=== PATIENT | female | born 1935 | race Caucasian/White ===

== ENCOUNTER → 2016-06-25 | Outpatient (CLI) | payer MEDICARE, OTHER ==
[~2016-06-25] MED LIST: ALBU17IN INH; BENA25TA4 PO; LOPR50TA PO; NO MEDS; NORCOTAB PO; OMEP40CA2 PO; TYLE325T5 PO
[2016-06-25 12:38] LABS: BLOOD UREA NITROGEN 16 MG/DL (7-18); CREATININE FOR GFR 0.84 MG/DL (0.55-1.02); GLOMERULAR FILTRATION RATE > 60.0 (>32)
== END ==
LOC: M LAB 11:37
PROVIDERS: ATTEND Surgery
DX: C18.9 Malignant neoplasm of colon, unspecified (principal)

== ENCOUNTER → 2016-07-09 | Outpatient (CLI) | payer MEDICARE, OTHER ==
[~2016-07-09] MED LIST changes: +GASTROGRAFIN SOLUTION 30ML (Q9963) As Ordered ONE; +ISOVUE-370 76% 100ML VIAL (Q9967) As Ordered ONE
--- NOTE | 2016-07-09 14:45 | REP ---
CT of the chest without IV contrast: Comparisons 02/11/2016. The patient has multiple lung nodules, compatible with metastases, as follows: Page 33, right lung, 11 mm, 5 mm previously. Page 35, right lung, 10 mm, 5 mm previously. Page 40, right lung, 11 mm, 6 mm previously. Page 47, right lung, 7 mm, 7 mm previously. Page 50, too small pleural based nodules, unchanged. Page 54, left lung, 9 mm, 7 mm previously. Page 59, right lung, tiny likely 2 mm, unchanged. Page 62, right lung, 7 mm, not present previously. Page 67, pleural-based nodule, right lung, unchanged. There are no infiltrates or effusions. There are calcified granulomas in the right hilar nodes. This is unchanged. There are calcifications in tracheal and bronchial cartilages. This is unchanged. There are no lytic, blastic or destructive skeletal changes. There is an hemangioma in the T7 vertebral body, unchanged from 07/16/2012. Additionally there is a small lucency posterior laterally on the right in the T 12 vertebral body, unchanged from 07/16/2012, also likely an hemangioma. No other hypermetabolic skeletal lesions were identified on the CT scan dated 03/05/2016. Impression: There are multiple lung nodules as described. There is no mediastinal, hilar or axillary lymph node enlargement. There are calcified granulomas in the right hilar lymph nodes. There are no infiltrates or effusions. There is no evidence of skeletal metastatic disease. There are findings compatible with benign hemangioma in the T7 vertebral body and the T12 vertebral body. Signed by Franklin Anderson MD 07/09/2016 02:36 P
--- NOTE | 2016-07-09 15:22 | REP ---
CT abdomen pelvis: The study is performed in tandem with the CT of the chest this same day utilizing the same IV contrast as for the chest CT. Multiphasic imaging of the abdomen performed. The liver is initially scanned without IV contrast. This is followed by arterial phase scanning from the diaphragms to the pubic symphysis. This is followed by delayed equilibrium phase scanning of the liver. Comparison is 08/30/2014. There is a focal hemangioma in the right lobe of the liver, unchanged from the prior study. There is no evidence of hepatic metastatic disease, as previously. The gallbladder, pancreas and spleen are unchanged. Splenic granulomas are again noted. There is a 1.4 cm nodule in the left adrenal at the confluence of the medial lateral leaves. This is unchanged from a prior CT dated 05/25/2012. There was no adrenal uptake on the PET scan of 03/05/2016. The right adrenal is unremarkable. The kidneys are unremarkable. The abdominal aorta is unremarkable. There is no retroperitoneal adenopathy. No mesenteric adenopathy. Pelvis: The surgical anastomotic suture line is again noted in the sigmoid colon. There is no ascites. There is no pelvic adenopathy. There is no evidence of tumor recurrence along the anastomosis. On the 02/11/2016 study there was a mass in the anterior pelvic wall at the level of the pubic symphysis. This mass is no longer present, however, there is stranding in the subcutaneous fat in this location. This stranding could be postsurgical change, postradiation change, or combination. There are no lytic, blastic or destructive skeletal changes in the lumbar spine or pelvis. There is a small bone island in the pubic symphysis on the left, unchanged from 05/25/2012. 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 Impression: No evidence of metastatic disease, adenopathy, or ascites in the abdomen or pelvis. An hepatic hemangioma is again noted. A benign left adrenal nodule is again noted. The mass anterior to the pubic symphysis on the anterior pelvic wall on the comparison study is no longer present. There is linear stranding in the anterior abdominal wall at this location on the current study. This could be postsurgical change , postradiation change or combination. Signed by Franklin Anderson MD 07/09/2016 03:14 P
== END ==
LOC: M RAD 11:51
PROVIDERS: ATTEND Surgery
DX: C18.9 Malignant neoplasm of colon, unspecified (principal)
CPT/HCPCS: 71260; 74178; Q9963; Q9967

== ENCOUNTER → 2016-07-30 | Outpatient (CLI) | payer MEDICARE, OTHER ==
[~2016-07-30] MED LIST changes: -GASTROGRAFIN SOLUTION 30ML (Q9963) As Ordered ONE; -ISOVUE-370 76% 100ML VIAL (Q9967) As Ordered ONE
--- NOTE | 2016-07-31 09:53 | REP ---
Whole body PET CT scan for restaging lung nodule, history of colon carcinoma. Comparison is the CT chest abdomen pelvis dated 07/09/2016. The comparison chest CT demonstrate multiple lung nodules, some of which have increased in size. Whole-body scanning is performed from skull base to the upper thighs. Comparison PET scan views dated 03/05/2016. Neck and supraclavicular areas: There are no hypermetabolic foci. This is unchanged. Chest: There are are three tiny foci centrally in the right lung in the right suprahilar area, not present previously but roughly corresponding to the lung nodules on the comparison chest CT. The uptake in these nodules varies from the standard uptake value of these nodules varies from 0.52 to 2.5 . These up standard uptake values are in the non hypermetabolic drains, however, be artifact below because of patient's small lesion size. This uptake in a in the nodules is new. It was not present on the comparison study. There is a focal zone of uptake in the body of the right scapula, not present previously, with a standard uptake value of 1.7, also non hypermetabolic. There is no vertebral body uptake. Abdomen, pelvis and upper thighs: There are no hypermetabolic foci. There is no uptake in the patient's known left adrenal nodule. Impression: The the patient has known multiple lung nodules. On the study today there is now uptake in a few of these lung nodules on the right. This uptake was not present previously, therefore, even though the uptake is non hypermetabolic the uptake could be artifactually low because of small nodule size. There is a small new focal zone of uptake in the right scapula, non hypermetabolic, also not present previously. There are no other uptake foci. The study is performed with 8.7 mCi of F 18 FDG. Signed by Franklin Anderson MD 07/30/2016 03:37 P
== END ==
LOC: M RAD 11:24
PROVIDERS: ATTEND Surgery
DX: R91.8 Other nonspecific abnormal finding of lung field (principal); Z85.038 Personal history of other malignant neoplasm of large intestine
CPT/HCPCS: 78815; A9552

== ENCOUNTER → 2016-10-30 | Outpatient (REF) | payer MEDICARE, OTHER | LOC: M LAB REF 16:37 | PROVIDERS: ATTEND Internal Medicine Medical Oncology | DX: C18.9 Malignant neoplasm of colon, unspecified (principal) ==

== ENCOUNTER → 2016-11-05 | Outpatient (CLI) | payer MEDICARE, OTHER ==
[~2016-11-05] MED LIST changes: +GASTROGRAFIN SOLUTION 30ML (Q9963) As Ordered ONE; +ISOVUE-370 76% 100ML VIAL (Q9967) As Ordered ONE; +diphenhydrAMINE 50 MG CAP As Ordered ONE
--- NOTE | 2016-11-05 13:43 | REP ---
CT chest with IV contrast: History: Re-evaluate pulmonary nodules. History of colon carcinoma. Comparison chest CT study July 09, 2016. CT contrast dose: 100 ml of intravenous Isovue 370. CT findings: Multiple noncalcified pulmonary nodules are again seen compatible with hematogenous metastasis. There is one of these which is new. This is a very small nodule in the medial aspect of the left upper lobe 4 mm in diameter seen on image 24 of 115 of series 304 of today's study. Several of the other previously noted nodules are a little larger today. A previously noted 10 mm nodule in the posterior segment of the right upper lobe now measures 12 mm in greatest diameter. Another kinza bronchovascular central nodule is increased from 11 to 12 mm in the right upper lobe. A pleural-based nodule in the right lower lobe has increased from 8 to 11 mm in greatest diameter. A right medial middle lobe nodule is slightly larger today measuring 7 mm in greatest diameter. The previously noted 9 mm nodule in the left lower lobe is unchanged. There is a right lower lobe nodule on page 59 of 115 of today's study which has increased to 10 mm from 7 mm. No hilar or mediastinal mass or adenopathy is observed. An aberrant right subclavian artery is again noted. No pleural or pericardial effusion is seen. No adrenal lesion is observed. No hepatic mass lesion is visible. Impression: Findings consistent with gradually progressive pulmonary metastatic disease. Signed by Lonnie Kang MD 11/05/2016 02:07 P
--- NOTE | 2016-11-05 14:01 | REP ---
CT ABDOMEN AND PELVIS WITHOUT AND WITH IV CONTRAST: With oral contrast. HISTORY: History of colon carcinoma, re-evaluate pulmonary nodules. Comparison CT abdomen and pelvis is from July 09, 2016. The patient is status post colon resection, abdominal mass resection, radiation therapy and chemotherapy. CT CONTRAST DOSE: 100 mL of Isovue [address] FINDINGS: No liver mass lesion is appreciated. There is a tiny granulomatous calcification at the capsule of the right lobe. Previously noted 1 cm right lobe hemangioma of the liver is again seen although less conspicuous today. There are granulomatous calcifications in the spleen. There is a small gallstone in the gallbladder. A small left adrenal nodule is again seen 1.4 cm in greatest diameter. This is unchanged. No periaortic mass or adenopathy is observed. A retroaortic left renal vein is again noted. No pelvic or inguinal adenopathy is seen. The suprapubic anterior abdominal wall mass noted on February 11, 2016 has regressed. There is some mild soft tissue thickening here much improved from February 14, 2016. This appears slightly thicker however when compared to the most recent prior study of July 09. On the right and just anterior to symphysis pubis, this measures 3.0 x 2.4 x 2.7 cm today. On the left it is also slightly more prominent than on the 07/09/2016 study measuring 1.8 x 2.1 x 1.9 cm. No other abdominal wall deposit is seen. There is some fibrotic density extending up from the suprapubic region along the anterior abdominal wall. This was present previously. No bony destructive lesion is seen. IMPRESSION: The suprapubic anterior abdominal wall mass appears a little more prominent today than on the most recent prior study of July 10, 2019. This suggests recurrence or gradual progression. Signed by Lonnie Kang MD 11/05/2016 02:07 P
== END ==
LOC: M RAD 10:55
PROVIDERS: ATTEND Internal Medicine Medical Oncology
DX: R91.8 Other nonspecific abnormal finding of lung field (principal); Z85.038 Personal history of other malignant neoplasm of large intestine
CPT/HCPCS: 71260; 74178; Q9963; Q9967

== ENCOUNTER → 2016-12-15 | Outpatient (REF) | payer MEDICARE, OTHER ==
[~2016-12-15] MED LIST changes: -GASTROGRAFIN SOLUTION 30ML (Q9963) As Ordered ONE; -ISOVUE-370 76% 100ML VIAL (Q9967) As Ordered ONE; -diphenhydrAMINE 50 MG CAP As Ordered ONE
== END ==
LOC: M LAB REF 13:35
PROVIDERS: ATTEND Internal Medicine Medical Oncology
DX: C18.9 Malignant neoplasm of colon, unspecified (principal)

== ENCOUNTER → 2017-03-17 | Outpatient (REF) | payer MEDICARE, OTHER ==
[~2017-03-17] MED LIST changes: +ALB2.5NEB INH; +Acetaminophen Tab PO; +IPRASOL4 NEB; +LOVE1INJ SC; +METO1TAB87 PO; +NICO21PAT TD; +ONDA4VLL IV; +PERCOCET PO; +SENN1TAB2 PO
== END ==
LOC: M LAB REF 17:19
PROVIDERS: ATTEND Internal Medicine Medical Oncology
DX: C18.9 Malignant neoplasm of colon, unspecified (principal)

== ENCOUNTER 2017-03-18 12:28 | Inpatient (IN) | payer MEDICARE, OTHER ==
[~2017-03-18] VITALS: Ht 165.1 cm; Wt 67.8 kg
[~2017-03-18 12:28] MED LIST changes: -ALB2.5NEB INH; -Acetaminophen Tab PO; -IPRASOL4 NEB; -LOVE1INJ SC; -METO1TAB87 PO; -NICO21PAT TD; -ONDA4VLL IV; -PERCOCET PO; -SENN1TAB2 PO
[2017-03-18] MEDS ORDERED: ONDANSETRON 4MG/2ML VIAL (J2405) IV ONE (13:00)
[2017-03-18 13:34] LABS: MEAN CORPUSCULAR HGB CONC 32.6 g/dl (32.0-36.5); PLATELET COUNT, AUTOMATED 276 10^3/uL (150-450); RED CELL DISTRIBUTION WIDTH 13.8 % (11.5-14.5); WHITE BLOOD COUNT 8.8 10^3/uL (4.0-10.0)
[2017-03-18 13:51] LABS: ANION GAP 6 MEQ/L (8-16); BLOOD UREA NITROGEN 11 MG/DL (7-18); CALCIUM LEVEL 8.9 MG/DL (8.8-10.2); CARBON DIOXIDE LEVEL 32 MEQ/L (21-32); CHLORIDE LEVEL 99 MEQ/L (98-107); CREATININE FOR GFR 0.77 MG/DL (0.55-1.02); GLOMERULAR FILTRATION RATE > 60.0 (>32); GLUCOSE, FASTING 125 MG/DL (83-110); POTASSIUM SERUM 4.2 MEQ/L (3.5-5.1); SODIUM LEVEL 137 MEQ/L (136-145)
--- NOTE | 2017-03-18 13:57 | REP ---
Clinical: Trauma . Findings: Age-related atrophy and microvascular ischemic changes are appreciated. The ventricles and sulci are symmetric. Alston-white differentiation is maintained. There is no evidence for acute intracranial hemorrhage, mass/mass effect, pathology or infarction. No extra-axial fluid collection. Calvarium is intact. Paranasal sinuses and mastoid air cells are clear. Impression: Age related atrophy and microvascular ischemic changes. No acute intracranial hemorrhage, infarction, or mass/mass effect. Signed by Torsten Bruce MD 03/18/2017 01:48 P
--- NOTE | 2017-03-18 13:59 | REP ---
Clinical: Trauma. Technique: Axial noncontrast images from the skull base to the thoracic inlet with coronal and sagittal re-formations. Findings: Alignment and lordosis maintained. No acute fracture / compression injury or subluxation. Mild multilevel degenerative changes include anterior spurring and minimal disc space narrowing - most pronounced at the C7-T1 level. Spinal canal is patent. Posterior elements and spinous processes are intact. Paravertebral soft tissues are normal. Impression: Mild multilevel degenerative changes. No acute fracture / compression injury or subluxation. Signed by Torsten Bruce MD 03/18/2017 01:50 P
[2017-03-18] MEDS: MORPHINE 2 MG/ML 1ML SYRINGE IV PRN ×2 (14:00→15:05)
[2017-03-18 14:16] LABS: INR 0.96
--- NOTE | 2017-03-18 14:32 | REP ---
Clinical: Trauma. Technique: Frontal view of the pelvis with neutral and frog lateral views of the left hip. Findings: Acute left femoral neck fracture identified with mild angulation. Impression: Acute left femoral neck fracture. Signed by Torsten Bruce MD 03/18/2017 02:23 P
--- NOTE | 2017-03-18 14:32 | REP ---
Clinical: Trauma. Comparison: 11/25/2012. Findings: Mediastinum and cardiac silhouette are normal. Lung lopez are clear. No focal consolidation, effusion, or pneumothorax. Skeletal structures appear intact. Impression: No acute cardiopulmonary process or focal consolidation. Signed by Torsten Bruce MD 03/18/2017 02:23 P
[2017-03-18] MEDS ORDERED: HYDROmorphone HCL 1 MG/ML SYRINGE (J1170) IV PRN ×2 (15:00)
[2017-03-18] MEDS ORDERED: ONDANSETRON 4MG/2ML VIAL (J2405) IV PRN ×2 (15:00→22:00)
--- NOTE | 2017-03-18 15:00 | IPNPDOC ---
Text Note Date of Service The patient was seen on 03/18/17. NOTE Preliminary Medicine note Please refer to H and P for more information. 81 F with metastatic colon cancer with new lung nodule found, s/p mechanical fall with left femoral neck fracture. No h/o CVA, CAD, VINCE, COPD. denied chest pain, sob,n/v, LOC. METS >4, able to climb a flight of stair, last meal 7:20 am. not on antiplatelet or anticoag. Patient optimized for orthopedic surgery. Intermediate risk fo intermediate risk surgery. Please refer to full note VS,Fishbone, I+O VS, Fishbone, I+O Laboratory Tests 03/18/17 13:23 Red Blood Count 5.72 H, Mean Corpuscular Volume 89.0, Mean Corpuscular Hemoglobin 29.0, Mean Corpuscular Hemoglobin Concent 32.6, Red Cell Distribution Width 13.8, Calcium Level 8.9, Total Creatine Kinase 65 Vital Signs Date Time Temp Pulse Resp B/P (MAP) Pulse Ox O2 Delivery O2 Flow Rate FiO2 03/18/17 14:51 20 93 Nasal Cannula 2.0 03/18/17 14:15 86 168/70 (102) 03/18/17 12:52 97.9 EMILIE BLACKWOOD MD Mar 18, 2017 15:00
[2017-03-18] MEDS ORDERED: METO1TAB87 PO (15:13)
[2017-03-18] MEDS ORDERED: NICOTINE 21MG/24HR 1 EA TRANSDERMAL TD PRN (15:15)
[2017-03-18] MEDS ORDERED: IPRATROPIUM 0.5MG/ALBUTEROL 2.5MG INH SOL UD 3ML (DUONEB)(J7620) NEB PRN (15:30)
[2017-03-18] MEDS: LR 1,000 ML IV SCH (15:36)
--- NOTE | 2017-03-18 15:42 | HPE ---
DATE OF ADMISSION: 03/18/2017 PRIMARY CARE PROVIDER: Dr. Srinivasan Almazan ORTHOPEDIC SURGEON: Dr. John Augustine CHIEF COMPLAINT: Fall with left hip fracture. HISTORY OF PRESENT ILLNESS: This is an 81-year-old female patient with underlying medical history of hypertension, colon cancer diagnosed 4 years ago with metastasis to the rectum. Had a colectomy with ileostomy and reversal of ileostomy. Also had radiation to the rectum. Tried five sessions of chemotherapy. Does not tolerate. Subsequently discontinued. In October this year patient also found to have spots in her lung. No further workup has been done since then. Patient baseline is actually pretty active, able to clean the house, walk up a flight of stairs. Earlier this morning patient was carrying groceries into her house, walking up one step. Subsequently lost her balance. Fell backward, hitting her back, neck, and head. Subsequently had severe 10/10 left hip with left hip being deformed. Subsequently brought to the emergency room. Found to have a left femoral neck fracture, displaced. Patient has a history of smoking. Denies history of coronary artery disease, stent placement, cerebrovascular accident (CVA). Denies any chest pain, loss of consciousness. Initially had some head pain but has subsequently resolved. No loss of consciousness. As per patient, she lost her balance. Baseline ambulating without any assistance. Denies any nausea, vomiting, shortness of breath, recent illness, fevers, chills. Denies any chest pain. Nicotine patch has been offered to the patient. Dr. John Augustine was consulted in the emergency room. Patient recently also last year had an abdominal surgery with mass removal for recurrent cancer with debulking procedure in 2015, and patient tolerated the procedure very well. ALLERGIES: PENICILLIN, PENICILLIN CROSS-REACTORS, and IV CONTRAST. PAST MEDICAL HISTORY: Colon cancer with metastasis and lung nodule that was found in October. Last chemotherapy was about 3 or 4 years ago. PAST SURGICAL HISTORY: 1. Colonoscopy. 2. Total abdominal hysterectomy. 3. Sigmoid colon resection for colon cancer. 4. Ileostomy with ileostomy creation in 2012. 5. Colonic reanastomosis in 2012. 6. Bilateral cataract extraction. 7. Abdominal mass removal, [facility], 2016. SOCIAL HISTORY: Lives at home with . Current smoker. Smoked a pack a day for 60+ years. No alcohol use. Last meal was 7:30 this morning with cereal. REVIEW OF SYSTEMS: Reported 10/10 left hip pain. Reported mild occipital head pain that has resolved since arriving at the emergency department (ED). All other review of systems is negative. FAMILY HISTORY: Noncontributory. HOME MEDICATIONS: Metoprolol 25 mg by mouth twice a day. PHYSICAL EXAMINATION: VITAL SIGNS: Temperature 97.9, pulse 86, respirations 20, blood pressure 168/70, pulse oximetry 95% on 2 liters nasal cannula. GENERAL: Patient alert and oriented times three in no acute distress. HEENT: Mild occipital soft tissue swelling. No tenderness to palpation. NECK: Supple. Good range of motion. No obvious trauma noticed. PULMONARY: Bilaterally clear to auscultation. CARDIAC: Regular S1, S2. No murmurs detected. ABDOMEN: Soft and nontender. Positive bowel sounds. EXTREMITIES: Left hip externally rotated and shortened. Left lower extremity: Dorsalis pedis (DP)/posterior tibialis (PT) pulses intact. Right lower extremity. DP/PT pulses intact. Able to move right lower extremity without any limitations. EKG: Sinus rhythm at 77. No acute ST-segment changes. LABORATORY DATA: WBC 8.8, hemoglobin and hematocrit 16.6/50.9, platelets 276. Sodium 137, potassium 4.2, chloride 99, bicarbonate 32, BUN 11, creatinine 0.77. Cardiac enzymes negative times one. INR 0.96. Cervical spine CT shows mild multilevel degenerative changes. No acute fractures. CT of the head shows no acute fractures, ischemic changes, or intracranial hemorrhage. Chest x-ray within normal limits. X-ray of the hip and pelvis shows acute left femoral neck fracture. ASSESSMENT AND PLAN: This is an 81-year-old female patient with underlying medical history of metastatic colon cancer with also newly discovered lung nodule and hypertension, presented status post mechanical fall with acute left femoral neck fracture, displaced. 1. Mechanical fall with acute femoral neck fracture. Given underlying active cancer, will need to follow pathology for possible pathological fracture. Orthopedics, Dr. John Augustine, has been consulted. Have attempted to call and left a message with Dr. Lisa Pendleton. Patient baseline metabolic equivalents (METS) greater than 4. Able to climb one flight of stairs, do common test man, do her laundry. Able to walk to the store and do shopping. Denies any chest pain, pressure, or discomfort. No EKG changes. Continue beta sylvester recommended. Patient is intermittent low risk for intermittent-risk procedure. Deep vein thrombosis (DVT) prophylaxis as per orthopedics. Will recommend starting perhaps Lovenox given underlying cancer tomorrow. Pain medication as ordered. Bowel regimen as ordered. Further management, activity status, perioperative management as per orthopedics. Risk and benefit counseling has been provided. 2. Hypertension. Continue metoprolol. 3. Colon cancer with lung nodules. Outpatient followup recommended. Will follow pathology during orthopedic surgery to see if it is a bone metastasis that has induced patient to have fractures. Outpatient followup with Dr. Lisa Pendleton. Patient does not want any chemotherapy. Did not tolerate it previously. 4. Smoking. Counseling provided. Nicotine patch has been offered. Patient refused. Will place nicotine as needed for the patient in case patient needs it. Counseling has been provided. 5. DVT prophylaxis. Defer to orthopedics. Tentative has been ordered Lovenox subcutaneous to start tomorrow given patient with underlying metastasis. 6. Diet. Patient currently nothing by mouth. IV fluids have been given. Awaiting surgery. Orthopedics, Dr. John Augustine, has been consulted.
[2017-03-18 17:30] VITALS: BP 174/81
[2017-03-18] MEDS: PERCOCET 5MG/325MG TAB PO PRN ×2 (17:56→23:25)
[2017-03-18] MEDS ORDERED: ENOXAPARIN 40 MG/0.4 ML SYRINGE (J1650) SC SCH (18:00)
[2017-03-18] MEDS ORDERED: ceFAZolin 1GM INJ (J0690) As Ordered ONE (19:17)
[2017-03-18] MEDS ORDERED: EPINEPHrine INJ 1 MG/ML 1ML AMP As Ordered ONE (19:18)
[2017-03-18] MEDS ORDERED: CLINDAMYCIN INJ 900MG/6ML VIAL As Ordered ONE (19:32)
[2017-03-18] MEDS ORDERED: ceFAZolin 2 GM/D5W 50 ML IV BAG (J0690) As Ordered ONE (19:53)
[2017-03-18] MEDS ORDERED: KETAMINE HCL 200 MG/20 ML VIAL As Ordered ONE (19:59)
[2017-03-18] MEDS ORDERED: fentaNYL 100 MCG/2 ML INJECTION (J3010) As Ordered ONE (19:59)
[2017-03-18] MEDS ORDERED: MIDAZOLAM INJ 2 MG/2 ML VIAL (J2250) As Ordered ONE (19:59)
[2017-03-18] MEDS ORDERED: PROPOFOL 200 MG/20 ML VIAL As Ordered ONE (19:59)
[2017-03-18] MEDS ORDERED: LIDOCAINE 2% INJ 100 MG/5 ML SDV (FOR ANES.) As Ordered ONE (19:59)
[2017-03-18 21:00] VITALS: BP 162/92
[2017-03-18 22:00] VITALS: BP 142/73
[2017-03-18] MEDS ORDERED: LR 1,000 ML IV SCH (22:00)
[2017-03-18] MEDS ORDERED: fentaNYL 100 MCG/2 ML INJECTION (J3010) IV PRN (22:00)
[2017-03-18] MEDS ORDERED: METOCLOPRAMIDE INJ 10MG/2ML VIAL (J2765) IV PRN (22:00)
[2017-03-18] MEDS ORDERED: PERCOCET 5MG/325MG TAB PO PRN (22:00)
[2017-03-18 23:00] VITALS: BP 131/59
[2017-03-18] MEDS: METOPROLOL TART 25 MG TABLET PO SCH (23:25)
[2017-03-18] MEDS: SENOKOT S TAB PO SCH (23:26)
[2017-03-19] VITALS: BP 128/60
[2017-03-19] MEDS: LR 1,000 ML IV SCH ×3 (01:30→21:04)
[2017-03-19] MEDS: PERCOCET 5MG/325MG TAB PO PRN ×3 (04:21→17:55)
[2017-03-19 06:00] VITALS: BP 129/58
[2017-03-19 07:28] LABS: MEAN CORPUSCULAR HEMOGLOBIN 29.1 pg (27.0-33.0); MEAN CORPUSCULAR HGB CONC 31.5 g/dl (32.0-36.5); MEAN CORPUSCULAR VOLUME 92.2 fl (80.0-96.0); PLATELET COUNT, AUTOMATED 200 10^3/uL (150-450); RED CELL DISTRIBUTION WIDTH 13.6 % (11.5-14.5); WHITE BLOOD COUNT 10.3 10^3/uL (4.0-10.0)
[2017-03-19 07:34] LABS: ANION GAP 3 MEQ/L (8-16); BLOOD UREA NITROGEN 9 MG/DL (7-18); CALCIUM LEVEL 8.2 MG/DL (8.8-10.2); CARBON DIOXIDE LEVEL 34 MEQ/L (21-32); CHLORIDE LEVEL 100 MEQ/L (98-107); CREATININE FOR GFR 0.71 MG/DL (0.55-1.02); GLOMERULAR FILTRATION RATE > 60.0 (>32); GLUCOSE, FASTING 96 MG/DL (83-110); MAGNESIUM LEVEL 1.7 MG/DL (1.8-2.4); POTASSIUM SERUM 4.5 MEQ/L (3.5-5.1); SODIUM LEVEL 137 MEQ/L (136-145)
[2017-03-19 07:43] LABS: INR 1.11
--- NOTE | 2017-03-19 08:09 | CR ---
DATE OF CONSULTATION: 03/18/2017 REASON FOR CONSULTATION: Left displaced femoral neck fracture. HISTORY OF THE PRESENT ILLNESS: An 81-year-old female carrying groceries into her home, went up one step and fell backwards, hit her head on the back of a wooden fence, she fell and injured her left hip. She did not have any antecedent pain in the left hip before this and was normally quite active, doing her housework and ambulating and getting around without any significant musculoskeletal pain. But there is a known history of metastatic colon cancer, primarily involving her lungs and the pelvic area, but there has been no known musculoskeletal metastases. She complains only presently of isolated pain in the left hip and groin with significant muscle spasms and does have some soreness in the back of her head, but no complaints of numbness or tingling in the upper or lower extremities associated with this. Seen and evaluated by the emergency room physicians, and I was called to see her and the hospitalist has admitted her and evaluated her and called me and said that she is otherwise healthy and it is okay to proceed with surgical fixation if needed today. Her past medical history is otherwise significant for some high blood pressure for which she takes metoprolol. Her past surgical history is colonoscopy, total abdominal hysterectomy, sigmoid colon resection for colon cancer with ileostomy in 2012 and colonic re-anastomosis later that year, then she had bilateral cataract surgeries, then she had further abdominal surgery at [facility] in 2016 for some type of debulking procedure for recurrent local mass in the lower abdominal area. Otherwise, her past medical history is significant for colon cancer with metastases. She sees Dr. Lisa Pendleton here and actually just saw her yesterday in the office. Plan for repeat chest, abdominal and pelvic CT scan in another month or so. She had a PET scan earlier this year, showed some uptake and some small nodules throughout mainly the right lung area and a smaller area in the right scapula, but there were non-hypermetabolic, apparently. Dr. Srinivasan Almazan careandrews for her medically, had a well patient check in October of this year. Otherwise she was doing fairly well. SOCIAL HISTORY: She does smoke cigarettes. She does not drink alcohol excessively. She is here with her brother and her [id number] up here on the hospital floor at [address]. ALLERGIES: To PENICILLIN. REVIEW OF SYSTEMS: Basically per the history of the present illness and the note from Dr. Mendoza. MEDICATIONS AT HOME: - metoprolol 25 mg twice a day When I examine her, she is an alert and pleasant female but complaining of isolated soreness in the left hip with frequent muscle spasms as I try to examine her. Her temperature is 97.9 with a pulse of 86, blood pressure 168/70, oxygen saturation is 95%. HEENT exam was benign. There is some soreness in the back of her head but no bleeding. Her neck was nontender to palpation. Her right scapula to palpation did not show any tenderness. She could elevate her arms up overhead without obvious soreness or rotator cuff deficiency, or obvious deformity, swelling or crepitance of her shoulders, humeri, elbows, forearms, wrists or hands. Her lungs are clear to auscultation. Her heart was tachycardic, but I did not detect any significant murmurs. Extremity examination: Otherwise in the lower extremity her left hip was held externally rotated and it was very tender in her left groin area. Distally I could not palpate pulses, but I got the Doppler out and easily obtained dorsalis pedis and posterior tibial pulses. She could move her toes well. Normal sensation to light touch dorsally and plantarly. Her laboratory studies done today showed a white count of 8.8, hematocrit of 50.9 and platelets of 276. Her sodium was 137, potassium 4.2, chloride 99, bicarbonate 32, BUN 11, creatinine 0.77, glucose 125. Her prothrombin time was 12.9 and INR of 0.96. Radiographs of the pelvis and right hip today show an obvious displaced left femoral neck fracture. There is no obvious otherwise lytic or blastic lesions, or obvious metastases seen or otherwise evidence of any other fracture that I can see on these x-rays. My impression overall is she is an 81-year-old female with metastatic colon cancer but no known skeletal metastases with a mechanical fall with acute onset of pain in the left hip and groin without any pain prior to this, did not have any pain with walking, so it is a low likelihood, and given the appearance on x-ray, that this is a metastatic lesion, but clearly this could be evaluated when we plan to do surgical fixation of her hip and send it for formal pathologic diagnosis. But I would recommend a left hip hemiarthroplasty given the displaced nature of this fracture and our hope is that we can get her out of bed quickly and recovering and ambulating as quickly as possible. But doing this carries the risk of having surgery, which I discussed with she and her brother and [id number]. There is always a risk of phlebitis, embolism, heart attack, amongst others, failure of the prosthesis or need for other surgery in the future can always happen with these types of injuries and surgeries and she understands that. She signed the consent. We plan to proceed as soon as the operating room is available. She has been nothing by mouth for most of the day already. Copy To: [id number]
[2017-03-19] MEDS: SENOKOT S TAB PO SCH ×2 (08:19→21:06)
[2017-03-19] MEDS: METOPROLOL TART 25 MG TABLET PO SCH ×2 (08:19→21:06)
--- NOTE | 2017-03-19 08:37 | REP ---
Clinical: Cough. Comparison: 03/18/2017. Findings: Mediastinum and cardiac silhouette are within normal limits and stable. Lung lopez demonstrate chronic interstitial changes and superimposed interstitial edema cannot be excluded no effusion. No pneumothorax. Skeletal structures are intact. Impression: Chronic stable changes. Cannot exclude interstitial edema. Signed by Torsten Bruce MD 03/19/2017 08:29 A
[2017-03-19 10:00] VITALS: BP 107/42
--- NOTE | 2017-03-19 11:29 | REP ---
Clinical: Status post arthroplasty. Technique: AP and cross-table lateral views. Findings: The patient is status post left hip replacement with normal positioning and appearance to the femoral and acetabular components. Overlying postsurgical changes appreciated. Impression: Satisfactory left hip replacement radiographs. Signed by Torsten Bruce MD 03/19/2017 11:21 A
[2017-03-19 14:00] VITALS: BP 130/53
[2017-03-19] MEDS: ACETAMINOPHEN TAB 650MG DOSE (2X325MG) PO PRN (21:05)
[2017-03-19 22:00] VITALS: BP 110/61
[2017-03-20] MEDS: ACETAMINOPHEN TAB 650MG DOSE (2X325MG) PO PRN (04:17)
--- NOTE | 2017-03-20 05:59 | ECGEPIP ---
Stationary ECG Study [facility] - ED Test Date: 2017-03-18 Pat Name: IRVIN BRAMBILA Department: Room: - Gender: F Analytical Lead: CHAI : 1935 Requested By: Duran Fitzgerald Order Number: [id number] Reading MD: Duran Nicholas Measurements Intervals [place] Rate: 77 P: 80 SD: 150 QRS: 66 QRSD: 89 T: 64 QT: 347 QTc: 395 Interpretive Statements SINUS RHYTHM NSTTW ABNORMALITIES RATE CHANGE COMPARED TO 06/10/12 Electronically Signed On 03-20-2017 5:59:03 EST by Duran Nicholas
[2017-03-20 06:00] VITALS: BP 103/46
[2017-03-20] MEDS ORDERED: ALBUTEROL SULFATE 2.5 MG/0.5 ML INH NEB SOLN INH PRN (06:30)
[2017-03-20 06:31] LABS: MEAN CORPUSCULAR HEMOGLOBIN 28.7 pg (27.0-33.0); MEAN CORPUSCULAR HGB CONC 31.5 g/dl (32.0-36.5); MEAN CORPUSCULAR VOLUME 91.1 fl (80.0-96.0); PLATELET COUNT, AUTOMATED 160 10^3/uL (150-450); RED CELL DISTRIBUTION WIDTH 13.6 % (11.5-14.5); WHITE BLOOD COUNT 11.5 10^3/uL (4.0-10.0)
[2017-03-20 06:40] LABS: INR 1.46
[2017-03-20 06:49] LABS: ANION GAP 8 MEQ/L (8-16); BLOOD UREA NITROGEN 19 MG/DL (7-18); CALCIUM LEVEL 8.4 MG/DL (8.8-10.2); CARBON DIOXIDE LEVEL 28 MEQ/L (21-32); CHLORIDE LEVEL 100 MEQ/L (98-107); CREATININE FOR GFR 0.65 MG/DL (0.55-1.02); GLOMERULAR FILTRATION RATE > 60.0 (>32); GLUCOSE, FASTING 69 MG/DL (83-110); MAGNESIUM LEVEL 1.7 MG/DL (1.8-2.4); POTASSIUM SERUM 4.3 MEQ/L (3.5-5.1); SODIUM LEVEL 136 MEQ/L (136-145)
[2017-03-20] MEDS: IPRATROPIUM 0.5MG/ALBUTEROL 2.5MG INH SOL UD 3ML (DUONEB)(J7620) NEB SCH ×3 (06:59→15:17)
[2017-03-20 08:01] VITALS: BP 110/46
[2017-03-20] MEDS: SENOKOT S TAB PO SCH (08:01)
[2017-03-20] MEDS: METOPROLOL TART 25 MG TABLET PO SCH (08:01)
[2017-03-20] MEDS: LR 1,000 ML IV SCH (08:01)
--- NOTE | 2017-03-20 08:51 | IPN ---
DATE OF SERVICE: 03/19/2017 Ms. Mejia has no complaints of chest pain. No shortness of breath. Does have left hip pain. Tolerating diet. Was uncomfortable overnight but apparently did sleep. Temperature 98.1, pulse 97, respiratory rate 16, blood pressure 129/58, 94% on 2 liters. Positive fluid balance of 1100. She is awake, appropriately interactive. Pleasantly conversant. Does have some upper airway sounds noted and some cough which is not productive. Speaking in sentences. Heart is distant sounding, normal S1, S2. White cell count 10.3, hemoglobin 14.1, platelets 200. INR 1.11, BUN 9, creatinine 0.7. Chest x-ray done this morning shows chronic stable changes. No infiltrate. ASSESSMENT: This is an 81-year-old with underlying metastatic colon cancer status post mechanical fall with acute left femoral neck fracture. PLAN: 1. Patient had a mechanical fall with acute femoral neck fracture, possibility of pathological fracture is considered. Will await pathology. Pain management. Deep venous thrombosis (DVT) prophylaxis. Activity, GI regimen per orthopedics. 2. Patient has hypertension, is on beta blockade. 3. Patient has colon cancer with lung nodules, possible bony mets, follows with [facility]. 4. Patient continues to use tobacco. 5. Deep venous thrombosis prophylaxis per orthopedics. 6. Patient has some upper airway noise and cough. Will get speech therapy evaluation. Chest x-ray is unremarkable. I do not believe she has a large risk of aspiration.
[2017-03-20] MEDS ORDERED: MAG SULF 1GM/100ML (MAG RUN) 1 GM in APPROPRIATE DILUENT 1 EA IV ONE (10:45)
--- NOTE | 2017-03-20 14:57 | IPN ---
DATE: 03/20/2017 Ms. Mejia has not wanted to get out of bed. Does not want to work with physical therapy. She is complaining of pain in her left hip. Not describing chest pain or shortness of breath. She has some cough. Temperature 98.4, pulse 89, respiratory rate 20, blood pressure 103/46, 90% on 2 liters nasal cannula. Intake and output notable for a positive fluid balance of 474. Weight is 67.8 kilos, basically unchanged from yesterday. She is awake, reasonable historian. She is nervous about getting her blood drawn this morning during my exam. Head is normocephalic, mucous membranes moist. Neck is supple. Breathing is symmetrical and resting. Heart S1 and S2. Abdomen she has right sided tenderness without rebound or guarding. She says this chronic and unchanged from what she frequently experiences. White cell count 11.5, hemoglobin 12.9, platelets 160. INR is 1.46, BUN 19, creatinine 0.65, magnesium is 1.7. My assessment is as follows: This is an 81-year-old with mechanical fall and acute femoral neck fracture with underlying metastatic colon cancer. My plan is as follows: 1. Orthopedic. Patient is being considered for the acute rehab unit. Physical therapy and occupational therapy are ordered. I have encouraged her to work with therapy today. The possibility of a pathological fracture is considered. We will await pathology results. Activity, gastrointestinal (GI) regimen and deep vein thrombosis (DVT) prophylaxis per ortho. 2. Patient has hypertension and is on beta-sylvester. 3. Patient has colon cancer with lung nodules. Possible bony mets. Follows with Dr. Lisa Pendleton. Does have chronic abdominal pain. She is having pain today which she says is not abnormal. 4. Patient uses tobacco. She is on a nicotine patch. I have scheduled nebulizers and made some as needed hopefully to assist with her breathing as she does have upper airway sounds. No active wheeze. Speech therapy as ordered. Chest x-ray was unremarkable.
[2017-03-20] MEDS ORDERED: ONDA4VLL IV (14:58)
[2017-03-20] MEDS ORDERED: ALB2.5NEB INH (14:58)
[2017-03-20] MEDS ORDERED: LOVE1INJ SC (14:58)
[2017-03-20] MEDS ORDERED: NICO21PAT TD (14:58)
[2017-03-20] MEDS ORDERED: Acetaminophen Tab PO (14:58)
[2017-03-20] MEDS ORDERED: SENN1TAB2 PO (14:58)
[2017-03-20] MEDS ORDERED: PERCOCET PO (14:58)
[2017-03-20] MEDS ORDERED: IPRASOL4 NEB (14:58)
[2017-03-20] MEDS ORDERED: ENOXAPARIN 40 MG/0.4 ML SYRINGE (J1650) SC SCH (18:00)
--- NOTE | 2017-03-21 08:30 | RO ---
DATE OF PROCEDURE: 03/18/2017 PREOPERATIVE DIAGNOSIS: Left displaced femoral neck fracture. POSTOPERATIVE DIAGNOSIS: Left displaced femoral neck fracture. PROCEDURE: Left cemented hemiarthroplasty left hip. SURGEON: Dr. Alda Augustine AUTO SERVICER: None. ANESTHESIA: Spinal. ESTIMATED BLOOD LOSS: 100 mL. SPECIMENS: Femoral head. COMPLICATIONS: None. PROCEDURE: Antibiotics were given intravenously preoperatively and a successful spinal anesthetic was induced. A Maria catheter was placed. She was placed in a lateral decubitus position on a hays bag, the down leg well padded, especially the peroneal nerve. Axillary roll was utilized. The left hip area was then carefully prepped and draped in the usual sterile fashion. After an appropriate time out, I made a longitudinal incision for a direct lateral approach to the hip. Bovie cautery was used to coagulate crossing vessels down to the tensor fascia. The tensor fascia was divided in line with the skin incision and then we split the gluteus medius anterior at one third posterior two third junction. We then carefully dissected the gluteus minimus and medius and anterior hip capsule off the proximal femur anteriorly as we axially rotated the hip and placed the leg in the leg bag anteriorly. The starter reamer was placed in the piriformis fossa, followed by the canal finder reamer and then the lateralizing reamer. Then a femoral neck osteotomy was performed just about at the fracture site. I then broached up to a size 6 broach. Calcar planer used. Then the femoral head removed and measured at 44 mm. No gross evidence of pathologic tumor was noted, but all the bone specimens were sent for pathologic diagnosis to make sure it was not metastatic colon cancer. I copiously irrigated out the acetabulum and removed all the bone fragments. Then we trial reduced with a #6 broach and a -3 was quite snug. I did not think a #0 was that appropriate, but she had excellent stability and range of motion with that construct. I thus removed all the trial components and then prepared the canal for cementing. I copiously pulsatile lavage irrigated out the femoral canal and used the canal brush, irrigated, and then placed the cement restrictor size #4 at the appropriate distance. Then used 3 epine[address] soaked [address] to place into the canal with constant Rivera tip irrigation. Then on the back table, I mixed the cement and after the cement had become the appropriate consistency, I dried the canal thoroughly and then cemented the stem in position with a 13.[address] Then held it until the cement hardened completely. All the excess cement was removed with a small curet. Two sponges were placed in the acetabulum to prevent bony cement from entering the acetabulum. Once the cement had hardened, I removed the sponges from the acetabulum and copiously pulsatile lavage irrigated out the hip joint several times throughout the operation as well as while we were waiting for the cement to dry. Then we dried the trunnion and placed the -3 sleeve and then the 44 mm ball and reduced the hip and irrigated again copiously. Then closed the anterior hip capsule and the gluteus minimus back anatomically with interrupted #1 PDS sutures and closed the gluteus medius back anatomically with interrupted #1 PDS sutures, irrigated between layers, and closed the tensor fascia with interrupted #1 PDS sutures, irrigating between layers, closed the deep subdermal tissues with interrupted #2-0 PDS sutures, and the skin was closed with deion, covered by Adaptic and dry sterile bulky dressing. She was then transferred to her bed and to the recovery room in stable condition. There were no intraoperative complications.
--- NOTE | 2017-03-24 20:22 | DSES ---
DATE OF ADMISSION: 03/18/2017 DATE OF DISCHARGE: 03/20/2017 SPECIALISTS INVOLVED DURING STAY: Include Dr. John Augustine PROCEDURES PERFORMED DURING STAY: Included left cemented hemiarthroplasty of the hip. DISCHARGE DIAGNOSES: 1. Mechanical fall. 2. Left hip fracture. 3. Hypertension. 4. History of lung cancer with nodules. 5. Tobacco use. 6. Pathologic fracture of the hip. SUMMARY OF HOSPITALIZATION: This is an 81-year-old with colon cancer with metastases, complicated past medical, who presented with mechanical fall while carrying groceries. Was admitted to the hospitalist service and underwent surgical repair of her acute femoral neck fracture and did well during her stay. Was thought to be able to go to acute rehabilitation service. Please see my progress note on 03/20/2017 for condition on discharge. Discharge instructions include the following: Followup with Dr. Almazan at discharge. Continue: - Tylenol 650 mg every 4 hours as needed - albuterol every 2 hours as needed - DuoNeb four times a day - Lovenox 40 mg subcutaneously daily - nicotine 21 mg patch topically daily - Zofran as needed - Percocet as needed for pain, one tablet every 4 hours - Senokot S one tablet by mouth twice a day - Continue metoprolol 25 mg by mouth twice a day Weight bearing as tolerated on the left leg with walker.
== END 2017-03-20 16:30 | DRG 470 ==
LOC: M ED 12:28 → EDBD 12:28 → M ED INP 14:55 → M MS5PR 16:40
PROVIDERS: ADMIT Hospitalist; ATTEND Internal Medicine
PROC: 0SRS01Z Replacement of Left Hip Joint, Femoral Surface with Metal Synthetic Substitute, Open Approach (ICD-10-PCS; principal; 2017-03-18 14:39)
DX: S72.002A Fracture of unspecified part of neck of left femur, initial encounter for closed fracture (principal); C78.5 Secondary malignant neoplasm of large intestine and rectum; C18.9 Malignant neoplasm of colon, unspecified; I10 Essential (primary) hypertension; F17.210 Nicotine dependence, cigarettes, uncomplicated; R91.8 Other nonspecific abnormal finding of lung field; Z90.49 Acquired absence of other specified parts of digestive tract; Z92.21 Personal history of antineoplastic chemotherapy; Z92.3 Personal history of irradiation; Z88.0 Allergy status to penicillin; Z91.041 Radiographic dye allergy status; Z90.710 Acquired absence of both cervix and uterus; Z98.41 Cataract extraction status, right eye; Z98.42 Cataract extraction status, left eye; Z79.899 Other long term (current) drug therapy; W01.0XXA Fall on same level from slipping, tripping and stumbling without subsequent striking against object, initial encounter; Y92.007 Garden or yard of unspecified non-institutional (private) residence as the place of occurrence of the external cause; Y93.01 Activity, walking, marching and hiking; Y99.9 Unspecified external cause status

== ENCOUNTER 2017-03-20 15:59 | Inpatient (IN) | payer MEDICARE, OTHER ==
[~2017-03-20] VITALS: Ht 165.1 cm; Wt 61.6 kg
[~2017-03-20 15:59] MED LIST changes: +ALB2.5NEB INH; +Acetaminophen Tab PO; +IPRASOL4 NEB; +LOVE1INJ SC; +METO1TAB87 PO; +NICO21PAT TD; +ONDA4VLL IV; +PERCOCET PO; +SENN1TAB2 PO
[2017-03-20] MEDS ORDERED: ALBUTEROL SULFATE 2.5 MG/0.5 ML INH NEB SOLN NEB PRN (16:15)
[2017-03-20 16:45] VITALS: BP 125/60
[2017-03-20] MEDS: ENOXAPARIN 40 MG/0.4 ML SYRINGE (J1650) SC SCH (18:41)
[2017-03-20 20:00] VITALS: BP 125/57
[2017-03-20] MEDS: SENOKOT S TAB PO SCH (20:13)
[2017-03-20] MEDS: ACETAMINOPHEN TAB 650MG DOSE (2X325MG) PO PRN (20:13)
[2017-03-20] MEDS: METOPROLOL TART 25 MG TABLET PO SCH (20:13)
[2017-03-20] MEDS: BISACODYL 10 MG SUPP PR SCH (20:43)
[2017-03-20] MEDS: IPRATROPIUM 0.5MG/ALBUTEROL 2.5MG INH SOL UD 3ML (DUONEB)(J7620) NEB SCH (21:43)
[2017-03-21 06:00] VITALS: BP 143/65
[2017-03-21] MEDS: ACETAMINOPHEN TAB 650MG DOSE (2X325MG) PO PRN ×2 (06:35→12:35)
[2017-03-21 07:01] LABS: BASO % 0.1 % (0.0-1.0); EOS # 0.1 10^3/uL (0.0-0.50); EOS % 1.1 % (0.0-3.0); IMMATURE GRANULOCYTE % 0.7 % (0-0); LYMPH # 0.4 10^3/uL (1.5-4.5); LYMPH % 4.8 % (24.0-44.0); MEAN CORPUSCULAR HEMOGLOBIN 28.8 pg (27.0-33.0); MEAN CORPUSCULAR HGB CONC 32.3 g/dl (32.0-36.5); MEAN CORPUSCULAR VOLUME 89.3 fl (80.0-96.0); MONO # 0.6 10^3/uL (0.0-0.8); MONO % 6.3 % (0.0-5.0); NEUTROPHILS # 7.9 10^3/uL (1.8-7.7); PLATELET COUNT, AUTOMATED 178 10^3/uL (150-450); RED CELL DISTRIBUTION WIDTH 13.7 % (11.5-14.5); WHITE BLOOD COUNT 9.1 10^3/uL (4.0-10.0)
[2017-03-21] MEDS: IPRATROPIUM 0.5MG/ALBUTEROL 2.5MG INH SOL UD 3ML (DUONEB)(J7620) NEB SCH ×4 (07:03→20:23)
[2017-03-21 07:26] LABS: ALBUMIN 2.4 GM/DL (3.2-5.2); ALBUMIN/GLOBULIN RATIO 0.83 (1.00-1.93); ALKALINE PHOSPHATASE 119 U/L (45-117); ALT/SGPT 14 U/L (12-78); ANION GAP 6 MEQ/L (8-16); AST/SGOT 28 U/L (7-37); BLOOD UREA NITROGEN 14 MG/DL (7-18); CALCIUM LEVEL 8.2 MG/DL (8.8-10.2); CARBON DIOXIDE LEVEL 31 MEQ/L (21-32); CHLORIDE LEVEL 98 MEQ/L (98-107); CREATININE FOR GFR 0.59 MG/DL (0.55-1.02); GLOMERULAR FILTRATION RATE > 60.0 (>32); GLUCOSE, FASTING 107 MG/DL (83-110); MAGNESIUM LEVEL 1.9 MG/DL (1.8-2.4); POTASSIUM SERUM 3.8 MEQ/L (3.5-5.1); SODIUM LEVEL 135 MEQ/L (136-145); TOTAL PROTEIN 5.3 GM/DL (6.4-8.2)
[2017-03-21] MEDS: SENOKOT S TAB PO SCH ×2 (08:15→21:03)
[2017-03-21] MEDS: NICOTINE 21MG/24HR 1 EA TRANSDERMAL TD SCH (08:15)
[2017-03-21] MEDS: BISACODYL 10 MG SUPP PR SCH ×2 (08:17→21:00)
[2017-03-21] MEDS: METOPROLOL TART 25 MG TABLET PO SCH ×2 (08:17→21:04)
[2017-03-21 14:00] VITALS: BP 141/63
--- NOTE | 2017-03-21 15:41 | PMRHPE ---
DATE OF ADMISSION: 03/20/2017 REASON FOR ADMISSION: Rehabilitation of left hip fracture with left hip hemiarthroplasty from fracture and surgery on 03/18/2017 in this right-handed elderly white female. HISTORY OF PRESENT ILLNESS: Patient is an 81-year-old white female who, approximately four years ago, was found to have gastrointestinal (GI) cancer and has had bowel resections, chemotherapy and treatment for metastases involving not only the colon, but the lungs and pelvic area. On 03/18/2017, patient was carrying groceries in the home and fell down the stairs, landing on her left hip and sustained a left hip fracture, for which she was seen in the emergency room and then evaluated by orthopedics and a left total hip arthroplasty was performed. The bone of this left femoral neck fracture was sent for pathology and the results are pending. Patient started physical and occupation therapy, showing some progress. She was also having large problems with coughing and speech therapy evaluation was just done this afternoon and I have just talked to the speech therapist, who reports that there is no dysphagia, dysarthria, aphagia, or other significant pathology that would require speech therapy, so this will not be pursued any further. Patient, who lives alone, does need to be independent to return to home. She has three steps to enter the home. She is very motivated and evaluations in physical therapy (PT) and occupational therapy (OT) indicate patient does have the endurance, as well as the motivation, to tolerate three hours of musculoskeletal rehabilitation per day. PAST MEDICAL HISTORY: Includes metastatic colon cancer with metastases in lung nodule and treatment with chemotherapy three to four years ago. PAST SURGICAL HISTORY: 1. Colonoscopy. 2. Total abdominal hysterectomy. 3. Sigmoid colon resection for colon cancer. 4. Ileostomy created in 2012. 5. Colonic reanastomosis in 2012. 6. Bilateral cataract extraction. 7. Abdominal mass removal at [facility] in 2016. Patient is allergic to PENICILLIN and PENICILLIN CROSS-REACTORS. MEDICATIONS ON ADMISSION: - Tylenol - albuterol nebulizer - DuoNeb nebulizers - Senokot-S - Lovenox - Lopressor - nicotine patch Patient initially uncertain about using a nicotine patch, but has agreed to try it to see if she can avoid withdrawals. FAMILY HISTORY: Noncontributory. SOCIAL HISTORY: Patient, who is a current smoker, and has a greater than 60 years history of smoking, and does not wish to stop, does not have a illicit substance history and does not use alcohol. REVIEW OF SYSTEMS: Includes left hip pain and constipation, with no bowel movements since before the fall with the hip fracture and some abdominal gas and distention. Also somewhat hard of hearing. Otherwise negative review of systems. PHYSICAL EXAMINATION: Patient is a slightly above average height for an 81-year-old white female, who is in mild musculoskeletal distress, favoring her left hip, with mild lower extremity edema, who is a bit anxious tonight on transfer. She is 5 feet 6 inches and weighs 67.9 kilograms. Temperature today 98.4, pulse 97, blood pressure 110/46, and patient with oxygen saturations of 90 on 2 liters of oxygen via nasal cannula. HEENT: Normocephalic, atraumatic. Pupils equal, round,reactive tolight and accommodation with extraocular movements intact and symmetrical. There is no facial asymmetry. Tongue is midline. Nares are clear. Hearing is impaired mildly. NECK: Supple. LUNGS: Clear in all lopez to auscultation. CORONARY: Shows regular, but fairly rapid, rate and rhythm, approximately 85 beats per minute to 90, with 2/4 bilateral radial pulses. ABDOMEN: Mild, gaseous distention with normal bowel sounds in all quadrants. No palpable masses or significant tenderness. EXTREMITIES: Bilateral upper and right lower extremity with good functional movement and lower extremities with mild edema present. Incision on left hip shows dry sterile dressing without drainage present and normal temperature touch in the thigh, though patient initially sensitive and anticipating pain with any touch or movement. NEUROLOGICAL: Patient is alert and well-oriented and aware of person, place, time and general situation. Speech is clear, coherent and appropriate. Affect is noted somewhat anxious and in general, pleasant and cooperative. Memory is good. Light touch an d vibration are intact in bilateral upper and lower extremities. Tone is within normal limits in bilateral upper and lower extremity. Patient with two upward knee jerks, trace ankle jerks, 1-2 out of 4 bilateral biceps, triceps , brachial radialis in symmetrical fashion. DIAGNOSTIC AND LABORATORY DATA: Shows patient is without anemia, having a hemoglobin and hematocrit (H and H) at 12.9 and 41, with a mildly elevated white count of 11,5000 and mildly elevated BUN of 19, but normal electrolytes except for magnesium and calcium, which are reduced at 1.7 and 8.4. Creatinine is normal at 0.65. ASSESSMENT/PLAN: DIAGNOSES: 1. Rehabilitation of left hip fracture status post hemiarthroplasty: Patient starting in program this morning with physical and occupational therapy, tolerated it well and is very motivated to regain independence to living alone at home. Patient, though, is having some difficulty with pain and some apprehension, so I am anticipating, while she only has three steps to deal with to get into the home, it is probably going to require 14 days to reach modified independent and independence in activities of daily living (ADLs), mobility or ambulation of greater than 100 feet with walker and modified independence and independence in activities of daily living (ADLs) using a front-wheeled walker for support. I do feel that patient will need some other adaptive equipment. 2. Colon cancer: It is unclear whether there was a pathologic fracture that caused her to fall, so this will be further evaluated as pathologic results are returned from removed bone specimen. 3. Constipation: I will go ahead and have nursing give patient some Dulcolax tonight to try and clear the constipation. This will probably relieve some discomfort as patient has a fair amount of gas and tympany in the abdomen. POSTADMISSION PHYSICIAN EVALUATION: Patient is consistent with preadmission evaluation and screening. It is important to keep watch for any complications from potential malignant metastases that could be emerging that may have caused this fracture and fall, but in general, patient should be able to continue progressing with her weightbearing as tolerated and as I believe a good prognosis to returning home by day 14, with the help of acute intensive rehabilitation, including physical therapy and occupational therapy, rehabilitation nursing, training, along with medicine and physiatry monitoring her. TIME SPENT ON CHART REVIEW, HISTORY AND PHYSICAL AND DOCUMENTATION: Greater than 70 minutes. MTDD
[2017-03-21] MEDS: ENOXAPARIN 40 MG/0.4 ML SYRINGE (J1650) SC SCH (18:49)
[2017-03-21 20:00] VITALS: BP 135/62
[2017-03-22] MEDS: ACETAMINOPHEN TAB 650MG DOSE (2X325MG) PO PRN ×3 (00:10→21:11)
[2017-03-22 06:00] VITALS: BP 137/62
[2017-03-22 07:03] LABS: BASO % 0.5 % (0.0-1.0); EOS # 0.2 10^3/uL (0.0-0.50); EOS % 3.5 % (0.0-3.0); IMMATURE GRANULOCYTE % 0.6 % (0-0); LYMPH # 0.7 10^3/uL (1.5-4.5); LYMPH % 9.9 % (24.0-44.0); MEAN CORPUSCULAR HEMOGLOBIN 28.3 pg (27.0-33.0); MEAN CORPUSCULAR VOLUME 88.5 fl (80.0-96.0); MONO # 0.7 10^3/uL (0.0-0.8); MONO % 10.1 % (0.0-5.0); NEUTROPHILS % 75.4 % (36.0-66.0); PLATELET COUNT, AUTOMATED 171 10^3/uL (150-450); RED CELL DISTRIBUTION WIDTH 14.2 % (11.5-14.5); WHITE BLOOD COUNT 6.6 10^3/uL (4.0-10.0)
[2017-03-22 07:20] LABS: ALBUMIN/GLOBULIN RATIO 0.74 (1.00-1.93); ALKALINE PHOSPHATASE 94 U/L (45-117); ALT/SGPT 12 U/L (12-78); ANION GAP 6 MEQ/L (8-16); AST/SGOT 14 U/L (7-37); BILIRUBIN,TOTAL 0.9 MG/DL (0.2-1.0); BLOOD UREA NITROGEN 12 MG/DL (7-18); CALCIUM LEVEL 8.2 MG/DL (8.8-10.2); CARBON DIOXIDE LEVEL 35 MEQ/L (21-32); CHLORIDE LEVEL 100 MEQ/L (98-107); CREATININE FOR GFR 0.54 MG/DL (0.55-1.02); GLOMERULAR FILTRATION RATE > 60.0 (>32); GLUCOSE, FASTING 86 MG/DL (83-110); MAGNESIUM LEVEL 1.8 MG/DL (1.8-2.4); POTASSIUM SERUM 3.6 MEQ/L (3.5-5.1); SODIUM LEVEL 141 MEQ/L (136-145); TOTAL PROTEIN 4.7 GM/DL (6.4-8.2)
[2017-03-22] MEDS: IPRATROPIUM 0.5MG/ALBUTEROL 2.5MG INH SOL UD 3ML (DUONEB)(J7620) NEB SCH ×3 (08:00→16:00)
[2017-03-22] MEDS: SENOKOT S TAB PO SCH ×2 (08:20→21:00)
[2017-03-22] MEDS: METOPROLOL TART 25 MG TABLET PO SCH ×2 (08:20→21:07)
[2017-03-22] MEDS: NICOTINE 21MG/24HR 1 EA TRANSDERMAL TD SCH (08:22)
[2017-03-22] MEDS: BISACODYL 10 MG SUPP PR SCH ×2 (09:00→21:00)
[2017-03-22 14:00] VITALS: BP 141/63
[2017-03-22] MEDS: ENOXAPARIN 40 MG/0.4 ML SYRINGE (J1650) SC SCH (18:18)
[2017-03-22 20:00] VITALS: BP 145/66
[2017-03-23 06:00] VITALS: BP 144/65
[2017-03-23] MEDS: ACETAMINOPHEN TAB 650MG DOSE (2X325MG) PO PRN ×3 (06:37→21:15)
[2017-03-23] MEDS: IPRATROPIUM 0.5MG/ALBUTEROL 2.5MG INH SOL UD 3ML (DUONEB)(J7620) NEB SCH ×4 (07:34→20:00)
[2017-03-23 07:37] LABS: BASO % 0.5 % (0.0-1.0); EOS # 0.4 10^3/uL (0.0-0.50); EOS % 6.8 % (0.0-3.0); IMMATURE GRANULOCYTE % 0.5 % (0-0); LYMPH # 0.6 10^3/uL (1.5-4.5); LYMPH % 10.7 % (24.0-44.0); MEAN CORPUSCULAR HGB CONC 32.5 g/dl (32.0-36.5); MEAN CORPUSCULAR VOLUME 89.2 fl (80.0-96.0); MONO # 0.8 10^3/uL (0.0-0.8); NEUTROPHILS % 67.5 % (36.0-66.0); PLATELET COUNT, AUTOMATED 203 10^3/uL (150-450); RED CELL DISTRIBUTION WIDTH 14.4 % (11.5-14.5); WHITE BLOOD COUNT 5.9 10^3/uL (4.0-10.0)
[2017-03-23 07:59] LABS: ALBUMIN 1.9 GM/DL (3.2-5.2); ALBUMIN/GLOBULIN RATIO 0.54 (1.00-1.93); ALKALINE PHOSPHATASE 92 U/L (45-117); ALT/SGPT 15 U/L (12-78); ANION GAP 6 MEQ/L (8-16); AST/SGOT 18 U/L (7-37); BLOOD UREA NITROGEN 15 MG/DL (7-18); CALCIUM LEVEL 8.2 MG/DL (8.8-10.2); CARBON DIOXIDE LEVEL 33 MEQ/L (21-32); CHLORIDE LEVEL 102 MEQ/L (98-107); CREATININE FOR GFR 0.63 MG/DL (0.55-1.02); GLOMERULAR FILTRATION RATE > 60.0 (>32); GLUCOSE, FASTING 91 MG/DL (83-110); POTASSIUM SERUM 3.3 MEQ/L (3.5-5.1); SODIUM LEVEL 141 MEQ/L (136-145); TOTAL PROTEIN 5.4 GM/DL (6.4-8.2)
[2017-03-23] MEDS: SENOKOT S TAB PO SCH ×3 (08:10→21:19)
[2017-03-23] MEDS: METOPROLOL TART 25 MG TABLET PO SCH ×2 (08:11→21:14)
[2017-03-23] MEDS: BISACODYL 10 MG SUPP PR SCH ×2 (08:11→21:14)
[2017-03-23] MEDS: NICOTINE 21MG/24HR 1 EA TRANSDERMAL TD SCH (09:46)
[2017-03-23] MEDS ORDERED: POTASSIUM CHLORIDE 10 MEQ SR TABLET PO ONE (10:00)
--- NOTE | 2017-03-23 11:44 | CR.PDOC ---
[facility] Consultation Consultation CONSULTATION REPORT FOR: Dr Orona REASON FOR CONSULTATION: Medical Management DATE OF VISIT: 03/23/17 ATTENDING: Dr. Bhavin Vazquez HPI: 81year oldF S/P mechanical fall, Left hip fracture s/p Left hip hemiarthroplasty 03/18/17 as per Orthopedic surgery. Transfered to the care of ARU, Dr Orona 03/21/17. Pt OOB to chair. No acute medical complaints today. Denies any fevers, chills, weakness, fatigue , Headache, Chest Pain, Shortness of breath, cough, palpitations, abdominal pain , N/V/D or changes in bowel or bladder habits. PAST MEDICAL HISTORY: HTN Colon cancer with metastasis and lung nodule that was found in October. Last chemotherapy was about 3 or 4 years ago. PAST SURGICAL HISTORY: 1. Colonoscopy. 2. Total abdominal hysterectomy. 3. Sigmoid colon resection for colon cancer. 4. Ileostomy with ileostomy creation in 2012. 5. Colonic reanastomosis in 2012. 6. Bilateral cataract extraction. 7. Abdominal mass removal, [facility], 2015. SOCHX: Marital Status: Tobacco use: 1 ppd x 60 years ETOH: denies PE: GEN: 81yoF, appears stated age. Well-nourished, well developed. No acute distress. Alert and oriented x 3. Pleasant, interactive. HEENT: Normocephalic, atraumatic. No facial asymmetry. Moist mucous membranes.. Neck supple, trachea midline. CHEST: Regular rate and rhythm, +S1, +S2 LUNGS: Clear to auscultation bilaterally. No wheezes, rales, or rhonchi. Breathing appears symmetric and easy. Patient is speaking in full sentences. No accessory muscle use. ABD: Round, soft, non-tender, non-distended. +Bowel sounds throughout. No rebound or guarding. No costovertebral angle tenderness. EXT: Pulses 2+ bilaterally dorsalis pedis and radial. No lower extremity edema appreciated. SKIN: [place], dry, warm. No rashes. NEURO: Alert and oriented x 3. Cranial nerves III-XII are intact. No focal deficits appreciated. A&P: 81year oldF S/P mechanical fall, Left hip fracture s/p Left hip hemiarthroplasty 03/18/17 as per Orthopedic surgery. Transfered to the care of ARU, Dr Orona 03/21/17. 1. Mechanical Fall, Left hip hemiarthroplasty as per Orthopedic surgery. Mgmt as per Orthopedics. ARU as per Dr Orona. PT/OT as per Dr Orona. Pain control as per Dr Orona. Bowel care as per Dr Orona. DVT prophylaxis. Lovenox as per Orthopedics 2. HTN. Metoprolol. 3. H/O Colon Ca 4. Tobacco use. Nicoderm. 5. Hypokalemia. PO supplement x 1 dose, recheck in AM. 6. Tmax 101.5 03/22/17. Sputum culture pending. BC x 2 pending. Request UA/UC as well. Update CXR. Encourage I/S. Cont nebs. Thank you for your consultation. We will continue to follow along with you. Vital Signs/I&O Vital Signs Date Time Temp Pulse Resp B/P (MAP) Pulse Ox O2 Delivery O2 Flow Rate FiO2 03/23/17 08:11 95 144/65 03/23/17 07:45 Room Air 03/23/17 06:00 99.8 18 93 0.5 I&O- Last 24 Hours up to 6 AM 03/24/17 06:00 Intake Total 240 ml Output Total 300 ml Balance -60 ml Laboratory Data Labs 24H Laboratory Tests 2 03/23/17 07:12: Immature Granulocyte % (Auto) 0.5H, White Blood Count 5.9, Red Blood Count 3.79L , Hemoglobin 11.0L, Hematocrit 33.8L, Mean Corpuscular Volume 89.2, Mean Corpuscular Hemoglobin 29.0, Mean Corpuscular Hemoglobin Concent 32.5, Red Cell Distribution Width 14.4, Platelet Count 203, Neutrophils (%) (Auto) 67.5H, Lymphocytes (%) (Auto) 10.7L, Monocytes (%) (Auto) 14.0H, Eosinophils (%) (Auto ) 6.8H, Basophils (%) (Auto) 0.5, Neutrophils # (Auto) 4.0, Lymphocytes # (Auto ) 0.6L, Monocytes # (Auto) 0.8, Eosinophils # (Auto) 0.4, Basophils # (Auto) 0.0 , Immature Granulocyte # (Auto) 0.0, Nucleated Red Blood Cells % (auto) 0.0, Anion Gap 6L, Glomerular Filtration Rate > 60.0, Blood Urea Nitrogen 15, Creatinine 0.63, Sodium Level 141, Potassium Level 3.3L, Chloride Level 102, Carbon Dioxide Level 33H, Calcium Level 8.2L, Aspartate Amino Transf (AST/SGOT) 18, Alanine Aminotransferase (ALT/SGPT) 15, Alkaline Phosphatase 92, Total Bilirubin 1.0, Total Protein 5.4L, Albumin 1.9L, Magnesium Level 2.0, Albumin/ Globulin Ratio 0.54L CBC/BMP Laboratory Tests 03/23/17 07:12 Red Blood Count 3.79 L, Mean Corpuscular Volume 89.2, Mean Corpuscular Hemoglobin 29.0, Mean Corpuscular Hemoglobin Concent 32.5, Red Cell Distribution Width 14.4, Neutrophils (%) (Auto) 67.5 H, Lymphocytes (%) (Auto) 10.7 L, Monocytes (%) (Auto) 14.0 H, Eosinophils (%) (Auto) 6.8 H, Basophils (% ) (Auto) 0.5, Neutrophils # (Auto) 4.0, Lymphocytes # (Auto) 0.6 L, Monocytes # (Auto) 0.8, Eosinophils # (Auto) 0.4, Basophils # (Auto) 0.0, Calcium Level 8.2 L, Aspartate Amino Transf (AST/SGOT) 18, Alanine Aminotransferase (ALT/SGPT) 15 , Alkaline Phosphatase 92, Total Bilirubin 1.0, Total Protein 5.4 L, Albumin 1.9 L Microbiology Microbiology 03/22/17 Blood Culture, Received Pending 03/22/17 Blood Culture, Received Pending Allergies Coded Allergies: Penicillins (Verified Allergy, Intermediate, HIVES, 05/09/14) Penicillins Cross Reactors (Verified Allergy, Intermediate, HIVES, 05/09/14 ) Home Medications Scheduled (Senna Plus 8.6-50 mg) 1 Tab Tab, 1 TAB PO BID, #1 Albuterol/Ipratropium (Ipratropium Ellsworth/Albut 0.5-2.5 (3) mg/3Ml) 1 Malika Malika, 3 ML NEB RQID, #1 Enoxaparin Sodium (Lovenox) 40 Mg/0.4 Ml Inj, 40 MG SC DAILY@1800, #1 Metoprolol Tartrate (Metoprolol Tartrate) 25 Mg Tab, 25 MG PO BID, (Reported) Scheduled PRN Albuterol Sulfate (Albuterol Sulfate) 2.5 Mg/0.5 Ml Neb, 2.5 MG INH Q2HP PRN for SOB/WHEEZING, #1 Nicotine (Nicotine Transdermal Syst) 21 Mg/24 Hr Dis, 1 PATCH TD DAILYPRN PRN for NICOTINE WITHDRAWAL, #1 Ondansetron (Ondansetron HCl) 4 Mg/2 Ml Inj, 4 MG IV Q6HP PRN for NAUSEA OR VOMITING, #1 Oxycodone/Acetaminophen (Percocet 5MG/325MG Tablet) 1 Tab Tab, 1 TAB PO Q4HP PRN for MODERATE PAIN (PS 5-7), #1 [Acetaminophen Tab] 325 MG/TAB TAB, 650 MG PO Q4HP PRN for MILD PAIN OR FEVER, # 1 Margarita Bernard Mar 23, 2017 11:44
--- NOTE | 2017-03-23 12:35 | IPNPDOC ---
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 On 03/18/2017, patient was carrying groceries in the home and fell down the stairs, landing on her left hip and sustained a left hip fracture, for which she was seen in the emergency room and then evaluated by orthopedics and a left total hip arthroplasty was performed 03/18/17. Patient with coughing and pathology still pending on the fracture site. Patient participating in PT/OT and was cleared by STAFFING EXECUTIVE on her oral control for secretions and meals. Patient continues to have left hip pain limiting her level of function and needs to be Mod. Indep. for return to living alone at home. ALLERGIES: See Below MEDICATIONS: Reviewed, see below. OBJECTIVE: VITAL SIGNS: Please see below. PHYSICAL EXAMINATION: GENERAL: Patient is a slightly above average height for an 81-year-old white female, who is in mild musculoskeletal distress, favoring her left hip, with mild lower extremity edema. HEENT: Normocephalic/atraumatic. CARDIOVASCULAR: Regular rate and rhythm with normal S1 and S2. 2/4 bilateral radial pulses. LUNGS: All lopez clear to auscultation. ABDOMEN: Mildly obese, soft nontender with normal bowel sounds in all quadrants. NEUROLOGICAL: Patient is alert and oriented 4. Speech is clear coherent and appropriate. Affect is pleasant and cooperative. Memory is intact. Bilateral upper extremity with functional range of motion and good strength. Right lower extremity with functional range of motion and good strength. SKIN: Healing left hip and thigh surgical incision sites. LABORATORY DATA: Reviewed. Please see below. MICROBIOLOGY: Please see below. IMAGING: No new imaging. DVT prophylaxis ordered?: Lovenox, [place] hose and sequential compression stockings. ASSESSMENT AND PLAN: 1. Rehabilitation of left hip fracture with closed reduction internal fixation: Patient is proceeding with gaiting and transfer training as well as ADLs. She shows some limitation due to pain. However has been able work past Bianca is contact-guard to standby assist in transfers and ambulating up to 280 feet with front wheel walker. Patient exceed my initial expectation that she will may require 14 days. Patient be reviewed at rehabilitation team rounds today. 2. Colon cancer: Patient with only mild anemia. No signs of active metastases at this time with pathology of the fracture still pending. 3. Fevers of unknown origin: Patient has blood cultures 2 pending but normal white count at 5.9 thousand. REHAB. TEAM ROUNDS: Patient is doing well on ambulation and most ADL's but still CGA to SBA in many areas and needs to improve on stairs to return to living at home alone. We anticipated Discharge Date of 03/26/17. Please see attached therapy notes below. TIME SPENT: Chart Review, examination and documentation require greater than 25 minutes. Patient: Eve Mejia : 1935 Age/Sex: 81/F Unit#: [id number] Room/Bed: M4148/01 User: Liya Yanes OT [facility] Date: 03/23/17 13:35 Type: OT Progress Time In * 13:00 Time Out * 13:30 OT Treatment Time-Minutes * 30 mins Type of Therapy Provided * Individual Precautions * Fall * Hip * WBAT Unit * Acute Inpatient Rehab Pain Comment * Pt reported "stiffness" in L hip this session. Subjective * Pt received supine in bed, pleasant and agreeable to OT session. Cognition * Within Normal Limits Cognition Comments * Alert and oriented x3. No cognitive deficits observed. Supine to Sit * Standby Assist Bed Mobility Notes * Patient completed supine to sit with HOB elevated, use of bed rail, and leg contact lens blocker and cutter for support of LLE. Sit to Stand * Standby Assist Stand to Sit * Standby Assist Chair to Bed * Standby Assist Functional Transfer Notes: * Pt performed spt bed>wc with RW with SBA demonstrating good safety awareness. Sit-Static * G Sit-Dynamic * G- Stand-Static * G Stand-Dynamic * F+ Balance Training Note * Sitting balance observed EOB, standing balance observed with RW. OT Intervention Note * Pt participated with UB therex using ergometer x 5 min to increase cardiovascular endurance for eased participation with ADL routine. No SOB reported during or after exercise. Pt also perf UB therex using 2# in mult planes to increase UE endurance as it relates to supporting self with AD during standing tasks and functional mobility. Pt left seated in wc in therapy gym with PTViviana, for PT session. OT Goal Note * Continue with OT plan of care. Discharge Recommendations * Home w/services Patient: Eve Mejia : 1935 Age/Sex: 81/F Unit#: [id number] Room/Bed: M4148/01 User: Viviana Howard, PT Therapist PT Date: 03/23/17 12:07 Type: PT Progress Note Time In * 11:00 Time Out * 12:00 PT Treatment Time-Minutes * 60 mins Type of Therapy Provided * Individual Precautions * Fall * Hip * WBAT Unit * Acute Inpatient Rehab Pain Start of Session * 0 Pain End of Session * 5 Pain Comment * Patient reports no pain at start of PT treatment. Following ambulation and exercises patient reports 5/10 pain. RN notified. Subjective * Patient supine in bed with HOB elevated upon PT arrival. Agreeable to PT treatment. Cognition * Within Normal Limits Cognition Comments * Alert and oriented x3. No cognitive deficits observed. Supine to Sit * Standby Assist Sit to Supine * Minimum Assist Rolling * Not Tested Bed Mobility Notes * Patient completed supine to sit with HOB elevated, use of bed rail, and leg contact lens blocker and cutter for support of LLE. Required min A at LLE for sit to supine in order to move L LE over edge of bed despite use of leg contact lens blocker and cutter. Sit to Stand * Contact Guard Assist Stand to Sit * Standby Assist Bed to Chair * Not Tested Chair to Bed * Contact Guard Assist Transfer Training Notes * Patient able to perform initial 5 sit <> stands with SBA, required CGA for last 3 reps of sit to stand due to fatigue and increased L hip pain. Patient demonstrates good safety awareness and hand placement for all transfers without use of verbal cues. Sit-Static * G Sit-Dynamic * G- Stand-Static * G Stand-Dynamic * F+ Balance Training Note * Sitting balance observed at EOB and in chair. Standing balance assessed at RW and in parallel bars. Patient able to statically stand x30 seconds with feet apart and no UE support for 2 reps with SBA only. Requires bilateral UE support for dynamic standing and increased weight bearing through BUEs. Ambulation Distance * 180 Feet Ambulation Level of Assist * Standby Assist Assistive Device Used * Rolling Walker * Wheelchair * Gait Belt * Oxygen Other Assistive Device Used * 180' x1 with RW on even ground 10 ' x5 on uneven ground with RW and SBA/CGA Weight BearingStatus * WBAT Left * FWB Right Gait Training Note * Patient ambulated 180' with RW on even surface with no supplemental O2. SpO2 remained 91%-94% with ambulation. No LOB able to perform with SBA. After seated rest break, patient ambulated 10' x 5 reps over red mat for uneven surface training. Patient able to ambulate on mat with SBA, required CGA to step up and down from mat. Level of Assist for Stairs * Not Tested Stair Training Note * Patient declining stair training. Did perform toe taps on 2" step with L and R foot x10 reps each. A. Roll Left and Right: * 88.Not Attempted B. Sit to Lying: * 03.Partial/Mod Assist Sit to Lying Comments: * assisting L LE C. Lying to Sitting on Side of Bed: * 05.Setup/clean up Asst D. Sit to Stand: * 04.Sup/Touch Assist E. Chair/Sud-fc-Sncet Transfer: * 04.Sup/Touch Assist Chair/Hgy-dq-Iizpl Transfer Comments: * with RW F. Toilet Transfer: * 88.Not Attempted G. Car Transfer: * 88.Not Attempted H. Does the patient walk?: * 2. Yes I. Walk 10 Feet: * 04.Sup/Touch Assist Walk 10 Feet Comments: * SBA with RW J. Walk 50' with Two Turns: * 88.Not Attempted K. Walk 150 Feet: * 04.Sup/Touch Assist Walk 150 Feet Comments: * ambulated 180' with RW L. Walking 10' on uneven surfaces: * 04.Sup/Touch Assist Walking 10' on uneven surfaces Comments: * SBA/CGA M. 1 Step (curb): * 88.Not Attempted N. 4 Steps (with or without railing): * 88.Not Attempted O. 12 Steps (with or without railing): * 88.Not Attempted P. Picking up Object from the Floor (from a standing): * 88.Not Attempted Q. Does the patient use a w/c (other than just transport): * 0. No Lower Extremity Exercised * Bilateral Supine Exercises * Heel Slides Other Supine Exercises * patient performed AAROM heel slides with L LE Number of Reps Supine * 10-15 Reps Sitting Exercises * Long Arc Quads * Toe Raises * Heel Raises Other Sitting Exercises * 2.5# ankle weight on R, required CGA for knee extension on L 10 reps x2 Number of Reps Sitting * 10-15 Reps Standing Exercises * Marching * Hip Abductions Other Standing Exercises * Balance exercises see balance note Toe taps on 2 inch step x10 reps Therapeutic Exercises Note * no adverse effect following ther ex PT Interventions * Gait Training * Therapeutic Excercise * Functional Training * Bed Mobility * Balance Activities * Safety/Precautions * HEP * Pt./Family Education * D/C Needs PT Progress Note * Patient demonstrates improved weight bearing through LLE with balance exercises and with gait training. Able to perform gait over uneven surfaces with SBA/CGA. Patient declining stair training, however, able to perform toe taps onto 2" step with CGA. Patient with increased pain following PT session, RN notified. Patient left supine in bed with HOB elevated, all needs within reach. PT Goal Expiration Date * Mar 06, 2018 Discharge Recommendations * Home w/services Allergies Coded Allergies: Penicillins (Verified Allergy, Intermediate, HIVES, 05/09/14) Penicillins Cross Reactors (Verified Allergy, Intermediate, HIVES, 05/09/14 ) Vital Signs Vital Signs Date Time Temp Pulse Resp B/P (MAP) Pulse Ox O2 Delivery O2 Flow Rate FiO2 03/23/17 08:11 95 144/65 03/23/17 07:45 Room Air 03/23/17 06:00 99.8 18 93 0.5 Laboratory Data CBC/BMP Laboratory Tests 03/23/17 07:12 Red Blood Count 3.79 L, Mean Corpuscular Volume 89.2, Mean Corpuscular Hemoglobin 29.0, Mean Corpuscular Hemoglobin Concent 32.5, Red Cell Distribution Width 14.4, Neutrophils (%) (Auto) 67.5 H, Lymphocytes (%) (Auto) 10.7 L, Monocytes (%) (Auto) 14.0 H, Eosinophils (%) (Auto) 6.8 H, Basophils (% ) (Auto) 0.5, Neutrophils # (Auto) 4.0, Lymphocytes # (Auto) 0.6 L, Monocytes # (Auto) 0.8, Eosinophils # (Auto) 0.4, Basophils # (Auto) 0.0, Calcium Level 8.2 L, Aspartate Amino Transf (AST/SGOT) 18, Alanine Aminotransferase (ALT/SGPT) 15 , Alkaline Phosphatase 92, Total Bilirubin 1.0, Total Protein 5.4 L, Albumin 1.9 L Labs 24H Laboratory Tests 2 03/23/17 07:12: Immature Granulocyte % (Auto) 0.5H, White Blood Count 5.9, Red Blood Count 3.79L , Hemoglobin 11.0L, Hematocrit 33.8L, Mean Corpuscular Volume 89.2, Mean Corpuscular Hemoglobin 29.0, Mean Corpuscular Hemoglobin Concent 32.5, Red Cell Distribution Width 14.4, Platelet Count 203, Neutrophils (%) (Auto) 67.5H, Lymphocytes (%) (Auto) 10.7L, Monocytes (%) (Auto) 14.0H, Eosinophils (%) (Auto ) 6.8H, Basophils (%) (Auto) 0.5, Neutrophils # (Auto) 4.0, Lymphocytes # (Auto ) 0.6L, Monocytes # (Auto) 0.8, Eosinophils # (Auto) 0.4, Basophils # (Auto) 0.0 , Immature Granulocyte # (Auto) 0.0, Nucleated Red Blood Cells % (auto) 0.0, Anion Gap 6L, Glomerular Filtration Rate > 60.0, Blood Urea Nitrogen 15, Creatinine 0.63, Sodium Level 141, Potassium Level 3.3L, Chloride Level 102, Carbon Dioxide Level 33H, Calcium Level 8.2L, Aspartate Amino Transf (AST/SGOT) 18, Alanine Aminotransferase (ALT/SGPT) 15, Alkaline Phosphatase 92, Total Bilirubin 1.0, Total Protein 5.4L, Albumin 1.9L, Magnesium Level 2.0, Albumin/ Globulin Ratio 0.54L Microbiology Microbiology 03/22/17 Blood Culture, Received Pending 03/22/17 Blood Culture, Received Pending Current Medications Current Medications Current Medications Acetaminophen (Tylenol Tab) 650 mg Q6HP PRN PO PAIN OR FEVER Last administered on 03/23/17t 06:37; Start 03/20/17 at 16:15; Stop 04/19/17 at 16:14 Albuterol Sulfate (Proventil Neb) 2.5 mg Q2HP PRN NEB SOB/WHEEZING; Start at 16:15; Stop 04/19/17 at 16:14 Albuterol/ Ipratropium (Duoneb (Ipr 0.5mg/Alb 2.5mg)) 3 ml RQID NEB Last administered on 03/23/17 07:34; Start 03/20/17 at 20:00; Stop 04/19/17 at 19 :59 Bisacodyl (Dulcolax Suppository) 10 mg BID CO Last administered on 03/20/17 20:43; Start 03/20/17 at 21:00; Stop 04/19/17 at 20:59 Enoxaparin Sodium (Lovenox) 40 mg DAILY@1800 SC Last administered on 18:18; Start 03/20/17 at 18:00; Stop 03/30/17 at 23:55 Metoprolol Tartrate (Lopressor) 25 mg BID PO Last administered on 03/23/17 08 :11; Start 03/20/17 at 21:00; Stop 04/19/17 at 20:59 Nicotine (Nicoderm Cq 21mg) 1 patch DAILY TD Last administered on 03/23/17 09 :46; Start 03/21/17 at 09:00; Stop 04/20/17 at 08:59 Senna/Docusate Sodium (Senokot S) 1 tab BID PO Last administered on 03/23/17 08:10; Start 03/20/17 at 21:00; Stop 04/19/17 at 20:59 ZACHARIAH DOWELL MD Mar 23, 2017 12:35
[2017-03-23 14:00] VITALS: BP 137/65
--- NOTE | 2017-03-23 15:56 | REP ---
Clinical: Fever. Comparison: 03/19/2017 . Technique: PA and lateral. Findings: The mediastinum and cardiac silhouette are stable and within normal limits. The lung lopez demonstrate chronic changes without acute consolidation, effusion, or pneumothorax. Scattered rounded nodular densities remain stable. The skeletal structures are intact and normal. Impression: 1. No acute cardiopulmonary process. 2. Chronic stable changes scattered bilateral rounded mass lesions noted on prior CT dated 11/05/2016. Signed by Torsten Bruce MD 03/23/2017 02:39 P
[2017-03-23] MEDS: ENOXAPARIN 40 MG/0.4 ML SYRINGE (J1650) SC SCH (17:58)
[2017-03-23 20:00] VITALS: BP 127/61
[2017-03-24 06:00] VITALS: BP 143/78
[2017-03-24] MEDS: IPRATROPIUM 0.5MG/ALBUTEROL 2.5MG INH SOL UD 3ML (DUONEB)(J7620) NEB SCH ×3 (07:43→23:46)
[2017-03-24 08:31] LABS: BASO % 0.6 % (0.0-1.0); EOS # 0.3 10^3/uL (0.0-0.50); EOS % 4.7 % (0.0-3.0); IMMATURE GRANULOCYTE % 0.6 % (0-0); LYMPH # 0.8 10^3/uL (1.5-4.5); LYMPH % 12.7 % (24.0-44.0); MEAN CORPUSCULAR HEMOGLOBIN 28.5 pg (27.0-33.0); MEAN CORPUSCULAR HGB CONC 31.6 g/dl (32.0-36.5); MEAN CORPUSCULAR VOLUME 90.3 fl (80.0-96.0); MONO # 0.7 10^3/uL (0.0-0.8); MONO % 10.2 % (0.0-5.0); NEUTROPHILS # 4.5 10^3/uL (1.8-7.7); NEUTROPHILS % 71.2 % (36.0-66.0); PLATELET COUNT, AUTOMATED 293 10^3/uL (150-450); RED CELL DISTRIBUTION WIDTH 14.6 % (11.5-14.5); WHITE BLOOD COUNT 6.4 10^3/uL (4.0-10.0)
[2017-03-24] MEDS: BISACODYL 10 MG SUPP PR SCH ×2 (08:41→20:59)
[2017-03-24] MEDS: SENOKOT S TAB PO SCH ×2 (08:41→20:59)
[2017-03-24] MEDS: NICOTINE 21MG/24HR 1 EA TRANSDERMAL TD SCH (08:42)
[2017-03-24] MEDS: METOPROLOL TART 25 MG TABLET PO SCH ×2 (08:42→20:59)
[2017-03-24 09:08] LABS: ALBUMIN 2.2 GM/DL (3.2-5.2); ALBUMIN/GLOBULIN RATIO 0.61 (1.00-1.93); ALKALINE PHOSPHATASE 117 U/L (45-117); ALT/SGPT 29 U/L (12-78); ANION GAP 8 MEQ/L (8-16); AST/SGOT 40 U/L (7-37); BILIRUBIN,TOTAL 1.1 MG/DL (0.2-1.0); BLOOD UREA NITROGEN 14 MG/DL (7-18); CALCIUM LEVEL 8.2 MG/DL (8.8-10.2); CARBON DIOXIDE LEVEL 31 MEQ/L (21-32); CHLORIDE LEVEL 101 MEQ/L (98-107); CREATININE FOR GFR 0.59 MG/DL (0.55-1.02); GLOMERULAR FILTRATION RATE > 60.0 (>32); GLUCOSE, FASTING 93 MG/DL (83-110); MAGNESIUM LEVEL 1.9 MG/DL (1.8-2.4); POTASSIUM SERUM 3.9 MEQ/L (3.5-5.1); SODIUM LEVEL 140 MEQ/L (136-145); TOTAL PROTEIN 5.8 GM/DL (6.4-8.2)
[2017-03-24] MEDS: ACETAMINOPHEN TAB 650MG DOSE (2X325MG) PO PRN ×2 (12:16→20:58)
--- NOTE | 2017-03-24 12:32 | IPNPDOC ---
PM&R Progress Note Supervisor In [employer] Progress Note DATE OF SERVICE: 03/24/17 DATE OF ADMISSION: Mar 20, 2017 at 16:30 INPATIENT REHABILITATION ADMISSION DAY: #5 SUBJECTIVE: Patient is an 81-year-old right handed white female who, approximately four years ago, was found to have gastrointestinal (GI) cancer and has had bowel resections, chemotherapy and treatment for metastases involving not only the colon, but the lungs and pelvic area. On 03/18/2017, patient was carrying groceries in the home and fell down the stairs, landing on her left hip and sustained a left hip fracture, for which she was seen in the emergency room and then evaluated by orthopedics and a left total hip arthroplasty was performed 03/18/17. Patient with coughing and pathology still pending on the fracture site. Patient participating in PT/OT and was cleared by CONTRACTING OFFICER on her oral control for secretions and meals. Patient continues to have left hip pain limiting her level of function and needs to be Mod. Indep. for return to living alone at home. ALLERGIES: See Below MEDICATIONS: Reviewed, see below. OBJECTIVE: VITAL SIGNS: Please see below. PHYSICAL EXAMINATION: GENERAL: Patient is a slightly above average height for an 81-year-old white female, who is in mild musculoskeletal distress, favoring her left hip, with mild lower extremity edema. HEENT: Normocephalic/atraumatic. CARDIOVASCULAR: Regular rate and rhythm with normal S1 and S2. 2/4 bilateral radial pulses. LUNGS: All lopez clear to auscultation. ABDOMEN: Mildly obese, soft nontender with normal bowel sounds in all quadrants. NEUROLOGICAL: Patient is alert and oriented 4. Speech is clear coherent and appropriate. Affect is pleasant and cooperative. Memory is intact. Bilateral upper extremity with functional range of motion and good strength. Right lower extremity with functional range of motion and good strength. SKIN: Healing left hip and thigh surgical incision sites. LABORATORY DATA: Reviewed. Please see below. MICROBIOLOGY: Please see below. IMAGING: EXAMINATION REQUESTED: Chest, 2 view PA, Lat REASON FOR PATIENT VISIT: LEFT DISPLACED FEMORAL NECK FRACTURE REASON FOR EXAM/COMMENT: fever Clinical: Fever. Comparison: 03/19/2017 . Technique: PA and lateral. Findings: The mediastinum and cardiac silhouette are stable and within normal limits. The lung lopez demonstrate chronic changes without acute consolidation, effusion, or pneumothorax. Scattered rounded nodular densities remain stable. The skeletal structures are intact and normal. Impression: 1. No acute cardiopulmonary process. 2. Chronic stable changes scattered bilateral rounded mass lesions noted on prior CT dated 11/05/2016. Signed by Torsten Bruce MD 03/23/2017 02:39 P DD: Torsten Bruce MD 03/23/171434 DT: Ayden 03/23/171438 DS: JOHN 03/23/[id number] DVT prophylaxis ordered?: Lovenox, [place] hose and sequential compression stockings. ASSESSMENT AND PLAN: 1. Rehabilitation of left hip fracture with closed reduction internal fixation: Patient is proceeding with gaiting and transfer training as well as ADLs. She shows some limitation due to pain. However has been able work past Bianca is contact-guard to standby assist in transfers and ambulating up to 280 feet with front wheel walker. Patient progressing well with PT/OT We anticipated Discharge Date of 03/26/17. Please see attached therapy notes below. 2. Colon cancer: Patient with only mild anemia. No signs of active metastases at this time with pathology of the fracture still pending. 3. Fevers of unknown origin: Patient has blood cultures 2 pending but normal white count at 6.4 thousand. TIME SPENT: Chart Review, examination and documentation require greater than 25 minutes. Patient: Eve Mejia : 1935 Age/Sex: 81/F Unit#: [id number] Room/Bed: M4148/01 User: Liya Yanes OT [facility] Date: 03/24/17 08:09 Type: OT Progress Time In * 07:10 Time Out * 08:00 OT Treatment Time-Minutes * 50 mins Type of Therapy Provided * Individual Precautions * Fall * Hip * WBAT Unit * Acute Inpatient Rehab Pain Comment * Pt with no c/o pain today, reports she slept well. Subjective * Pt received for session supine in bed, pleasant and agreeable to OT session. Cognition * Within Normal Limits Cognition Comments * Alert and oriented x3. No cognitive deficits observed. Supine to Sit * Standby Assist Bed Mobility Notes * Patient able to perform supine <> sit with SBA; HOB elevated, bed rail, and use of leg cdl company driver. Increased time to perform. Will rehearse with HOB flat during second session to simulate pt's home set up. Sit to Stand * Modified Independent Stand to Sit * Modified Independent Toilet/Commode * Standby Assist Functional Transfer Notes: * Pt perf sit<>stand x mult trials throughout ADL session to RW with mod I. Pt ambulated bedside<>bathroom with RW with distant S, good safety awareness noted. No c/o SOB with ambulation. Bathing * Standby Assist Dressing-Upper Body * Standby Assist Dressing-Lower Body * Standby Assist Grooming * Standby Assist Toileting * Modified Independent ADL Training Note * Pt performed toileting tasks s/p voiding with mod I using RW for support in standing. Pt performed UB bathing and LB bathing using long handled sponge with s/u while seated in chair at sink. Pt able to stand to wash kinza area and buttocks without assistance. Pt donned bra and cardigan sweater and used dressing stick, sock aid and key worker to don/doff socks, don clean brief and clean pants with s/u. Pt performed oral hygiene in standing at sink with RW and combed hair while seated in bedside chair with mod I. B. Oral Hygiene (includes gums in edentulous pts): * 06.Independent Oral Hygiene Comments: * In standing. See ADL note. C. Toileting Hygiene (not transfers): * 06.Independent Toileting Hygiene Comments: * See ADL note E. Shower/Bathe Self (not transfers, can be sponge bath): * 05.Setup/clean up Asst Shower/Bathe Self Comments: * See ADL note. F. Upper Body Dressing (includes bra, not hospital gown): * 05.Setup/clean up Asst Upper Body Dressing Comments: * See ADL note. G. Lower Body Dressing (includes briefs and knee braces): * 05.Setup/clean up Asst Lower Body Dressing Comments: * See ADL note. H. Putting on/taking off footwear (includes TEDS and AFO): * 05.Setup/clean up Asst Putting on/taking off footwear Comments: * See ADL note. Sit-Static * G Sit-Dynamic * G- Stand-Static * G Stand-Dynamic * G- Balance Training Note * Sitting balance observed EOB, standing balance observed with RW. OT Intervention Note * Pt demonstrates good carry over with AE and was able to perform bathing and dressing this date with s/u only. Pt left seated in bedside chair at end of session with call hyman in reach and all needs met. OT Goal Note * Continue with OT plan of care. Discharge Recommendations * Home w/services Patient: Eve Mejia : 1935 Age/Sex: 81/F Unit#: [id number] Room/Bed: M4148/01 User: Chanda Mckeon PT PT Date: 03/24/17 12:53 Type: PT Progress Note Time In * 09:05 Time Out * 10:05 PT Treatment Time-Minutes * 60 mins Type of Therapy Provided * Individual Precautions * WBAT Unit * Acute Inpatient Rehab Pain Comment * pt states she had pain meds. she con't to note some pain during session however does not rate at this time. Subjective * Pt is seated up in her chair and ready to participate in therapy at this time. She is willing to complete all that is asked of her at this time. She notes anxiety on the stairs however was willing to complete today during session. Cognition * Within Normal Limits Cognition Comments * Alert and oriented x3. No cognitive deficits observed. Supine to Sit * Not Tested Sit to Supine * Standby Assist Rolling * Not Tested Bed Mobility Notes * Pt was able to get into bed today with the use of her leg cdl company driver. She does request the HOB raised however was willing to complete without it. She does use some bed rail assistance today however is able to do it without touching assistance. Sit to Stand * Modified Independent Stand to Sit * Modified Independent Bed to Chair * Modified Independent Chair to Bed * Modified Independent Toilet/Commode * Not Tested Transfer Training Notes * pt was able to complete all transfers with good safe and without touching assistance today. several different surfaces and heights were practiced. Sit-Static * G Sit-Dynamic * G Stand-Static * G Stand-Dynamic * G- Balance Training Note * no LOB; walker used t/o Ambulation Distance * 170 Feet Ambulation Level of Assist * Standby Assist Assistive Device Used * Rolling Walker * Wheelchair * Gait Belt * Oxygen Weight BearingStatus * WBAT Left * FWB Right Gait Training Note * pt completing distance to the gym as well as several distances while there. She was also able to complete distance back to her room. She states she feels she is beginning to put increased weight on her leg. Wheelchair Mobility Level of Assist * Not Tested Number of Stairs Completed * 4 Stairs Railing * Yes Railing Side * Right & Left Level of Assist for Stairs * Contact Guard Assist Stair Training Note * pt was able to complete ambulation up and down stairs today with proper technique. pt notes she has some axiety during completion but is doing well. A. Roll Left and Right: * 05.Setup/clean up Asst B. Sit to Lying: * 05.Setup/clean up Asst C. Lying to Sitting on Side of Bed: * 05.Setup/clean up Asst D. Sit to Stand: * 06.Independent E. Chair/Mmj-ct-Xcchv Transfer: * 06.Independent Chair/Wub-ks-Yawbn Transfer Comments: * with RW F. Toilet Transfer: * 88.Not Attempted G. Car Transfer: * 88.Not Attempted H. Does the patient walk?: * 2. Yes I. Walk 10 Feet: * 05.Setup/clean up Asst J. Walk 50' with Two Turns: * 05.Setup/clean up Asst K. Walk 150 Feet: * 05.Setup/clean up Asst L. Walking 10' on uneven surfaces: * 05.Setup/clean up Asst M. 1 Step (curb): * 05.Setup/clean up Asst N. 4 Steps (with or without railing): * 04.Sup/Touch Assist O. 12 Steps (with or without railing): * 09.Not Applicable P. Picking up Object from the Floor (from a standing): * 88.Not Attempted Q. Does the patient use a w/c (other than just transport): * 1. Yes R. Wheel 50' with 2 Turns(seated in w/c): * 88.Not Attempted RR. What type of w/c?: * 1. Manual S. Wheel 150' (seated in w/c): * 88.Not Attempted Lower Extremity Exercised * Bilateral PT Interventions * Gait Training * Therapeutic Excercise * Functional Training * Bed Mobility * Balance Activities * Safety/Precautions * HEP * Pt./Family Education * D/C Needs PT Progress Note * pt was able to complete all asked of her. She tolerates well and completes stairs well with no LOB or safety concerns. Pt was left supine in bed at this time with her call hyman. Nursing notified. PT Goal Expiration Date * Mar 06, 2018 Discharge Recommendations * Home w/services Safe for discharge at this time * No Patient: Eve Mejia : 1935 Age/Sex: 81/F Unit#: [id number] Room/Bed: [place] [address] User: Bijal Garcia PT PT Date: 03/24/17 15:27 Type: PT Progress Note Time In * 13:05 Time Out * 13:35 PT Treatment Time-Minutes * 30 mins Type of Therapy Provided * Individual Precautions * WBAT Unit * Acute Inpatient Rehab Pain Start of Session * 4 Pain End of Session * 4 Pain Comment * Patient reports that she has pain in the hip however just had pain meds so its "not bad". Subjective * Patient is agreeable to PT treatment. Patient was standing at sink in bathroom with nurse prior to PT treatment. Cognition * Within Normal Limits Cognition Comments * Alert and oriented x3. No cognitive deficits observed. Supine to Sit * Not Tested Sit to Supine * Standby Assist Rolling * Not Tested Bed Mobility Notes * SBA with sit to supine with use of leg cdl company driver. Patient is able to perform with SBA. Sit to Stand * Modified Independent Stand to Sit * Modified Independent Bed to Chair * Not Tested Chair to Bed * Not Tested Toilet/Commode * Not Tested Transfer Training Notes * Mod I with sit to stand transfers. Patient demonstrates no LOB, no safety concerns. Sit-Static * G Sit-Dynamic * G Stand-Static * G Stand-Dynamic * G- Balance Training Note * Sitting balance assessed sitting at EOB, standing balance assessed standing at RW. Ambulation Distance * 150 Feet Ambulation Level of Assist * Standby Assist Assistive Device Used * Rolling Walker * Wheelchair * Gait Belt * Oxygen Weight BearingStatus * WBAT Left * FWB Right Gait Training Note * Patient ambulated 150 ft x2 this date with no LOB. Patient is bearing more weight on Lt LE. Patient demonstrates decreased lillie and decreased stride length on the Lt. Wheelchair Mobility Level of Assist * Not Tested Number of Stairs Completed * 4 Stairs Railing * Yes Railing Side * Right & Left Level of Assist for Stairs * Contact Guard Assist Weight Bearing Status on Stairs * WBAT Left * FWB Right Stair Training Note * Patient demonstrates step to gait pattern with stair negotiation. Patient demonstrates no LOB increased ease with stair negotiation this date. A. Roll Left and Right: * 88.Not Attempted B. Sit to Lying: * 05.Setup/clean up Asst Sit to Lying Comments: * assisting L LE with leg cdl company driver C. Lying to Sitting on Side of Bed: * 05.Setup/clean up Asst Lying to Sitting on Side of Bed Comments: * assisting L LE with leg cdl company driver D. Sit to Stand: * 06.Independent E. Chair/Vqv-tb-Vsskn Transfer: * 06.Independent Chair/Amy-iv-Dewft Transfer Comments: * with RW F. Toilet Transfer: * 88.Not Attempted G. Car Transfer: * 88.Not Attempted H. Does the patient walk?: * 2. Yes I. Walk 10 Feet: * 05.Setup/clean up Asst J. Walk 50' with Two Turns: * 05.Setup/clean up Asst K. Walk 150 Feet: * 05.Setup/clean up Asst Walk 150 Feet Comments: * ambulated 150 ft x2 - see gait notes L. Walking 10' on uneven surfaces: * 88.Not Attempted M. 1 Step (curb): * 04.Sup/Touch Assist N. 4 Steps (with or without railing): * 04.Sup/Touch Assist 4 Steps (with or without railing) Comments: * see stair negotiation notes O. 12 Steps (with or without railing): * 09.Not Applicable P. Picking up Object from the Floor (from a standing): * 88.Not Attempted Q. Does the patient use a w/c (other than just transport): * 1. Yes R. Wheel 50' with 2 Turns(seated in w/c): * 88.Not Attempted RR. What type of w/c?: * 1. Manual S. Wheel 150' (seated in w/c): * 88.Not Attempted Lower Extremity Exercised * Bilateral Therapeutic Exercises Note * Session focused on functional mobility. PT Interventions * Gait Training * Therapeutic Excercise * Functional Training * Bed Mobility * Balance Activities * Safety/Precautions * HEP * Pt./Family Education * D/C Needs PT Progress Note * Patient demonstrates improved functional mobility this session. Patient demonstrates ease with stair negotiation requiring CGA for safety only, demonstrates proper technique. Patient continues to have minor difficulty with bed mobility of LLE but appears to be improving. Patient demonstrates all activity with no immediate adverse effects. Patient was supine resting in bed with call hyman in reach following PT session. PT Goal Expiration Date * Mar 06, 2018 Discharge Recommendations * Home w/services Safe for discharge at this time * No Allergies Coded Allergies: Penicillins (Verified Allergy, Intermediate, HIVES, 05/09/14) Penicillins Cross Reactors (Verified Allergy, Intermediate, HIVES, 05/09/14 ) Vital Signs Vital Signs Date Time Temp Pulse Resp B/P (MAP) Pulse Ox O2 Delivery O2 Flow Rate FiO2 03/24/17 08:42 98 143/78 03/24/17 06:00 98.8 18 93 Room Air 03/23/17 06:00 0.5 Laboratory Data CBC/BMP Laboratory Tests 03/24/17 08:12 Red Blood Count 4.31, Mean Corpuscular Volume 90.3, Mean Corpuscular Hemoglobin 28.5, Mean Corpuscular Hemoglobin Concent 31.6 L, Red Cell Distribution Width 14.6 H, Neutrophils (%) (Auto) 71.2 H, Lymphocytes (%) (Auto) 12.7 L, Monocytes (%) (Auto) 10.2 H, Eosinophils (%) (Auto) 4.7 H, Basophils (%) (Auto) 0.6, Neutrophils # (Auto) 4.5, Lymphocytes # (Auto) 0.8 L, Monocytes # (Auto) 0.7, Eosinophils # (Auto) 0.3, Basophils # (Auto) 0.0, Calcium Level 8.2 L, Aspartate Amino Transf (AST/SGOT) 40 H, Alanine Aminotransferase (ALT/SGPT) 29, Alkaline Phosphatase 117, Total Bilirubin 1.1 H, Total Protein 5.8 L, Albumin 2.2 L Labs 24H Laboratory Tests 2 03/23/17 12:42: Urine Appearance CLEAR, Urine Color YO, Urine pH 6.0, Urine Specific [place] 1.024, Urine Protein NEGATIVE, Urine Glucose (UA) NEGATIVE, Urine Ketones TRACEH , Urine Urobilinogen 4.0H, Urine Bilirubin NEGATIVE, Urine Leukocyte Esterase NEGATIVE, Urine Blood NEGATIVE, Urine Nitrite NEGATIVE, Urine WBC (Auto) 2, Urine RBC (Auto) 4H, Urine Hyaline Casts (Auto) 0, Urine Bacteria (Auto) NEGATIVE, Urine Squamous Epithelial Cells 0, Urine Mucus (Auto) SMALL, Urine Sperm (Auto) 03/24/17 08:12: Immature Granulocyte % (Auto) 0.6H, White Blood Count 6.4, Red Blood Count 4.31 , Hemoglobin 12.3, Hematocrit 38.9, Mean Corpuscular Volume 90.3, Mean Corpuscular Hemoglobin 28.5, Mean Corpuscular Hemoglobin Concent 31.6L, Red Cell Distribution Width 14.6H, Platelet Count 293, Neutrophils (%) (Auto) 71.2H , Lymphocytes (%) (Auto) 12.7L, Monocytes (%) (Auto) 10.2H, Eosinophils (%) ( Auto) 4.7H, Basophils (%) (Auto) 0.6, Neutrophils # (Auto) 4.5, Lymphocytes # ( Auto) 0.8L, Monocytes # (Auto) 0.7, Eosinophils # (Auto) 0.3, Basophils # (Auto ) 0.0, Immature Granulocyte # (Auto) 0.0, Nucleated Red Blood Cells % (auto) 0.0 , Anion Gap 8, Glomerular Filtration Rate > 60.0, Blood Urea Nitrogen 14, Creatinine 0.59, Sodium Level 140, Potassium Level 3.9, Chloride Level 101, Carbon Dioxide Level 31, Calcium Level 8.2L, Aspartate Amino Transf (AST/SGOT) 40H, Alanine Aminotransferase (ALT/SGPT) 29, Alkaline Phosphatase 117, Total Bilirubin 1.1H, Total Protein 5.8L, Albumin 2.2L, Magnesium Level 1.9, Albumin/ Globulin Ratio 0.61L Microbiology Microbiology 03/22/17 Blood Culture - Preliminary, Resulted No growth after 24 hours . All specim... 03/22/17 Blood Culture - Preliminary, Resulted No growth after 24 hours . All specim... 03/24/17 Gram Stain - Final, Resulted 03/24/17 Sputum Culture, Resulted Pending 03/23/17 Urine Culture - Final, Complete Current Medications Current Medications Current Medications Acetaminophen (Tylenol Tab) 650 mg Q6HP PRN PO PAIN OR FEVER Last administered on 03/24/17 12:16; Start 03/20/17 at 16:15; Stop 04/19/17 at 16:14 Albuterol Sulfate (Proventil Neb) 2.5 mg Q2HP PRN NEB SOB/WHEEZING; Start at 16:15; Stop 04/19/17 at 16:14 Albuterol/ Ipratropium (Duoneb (Ipr 0.5mg/Alb 2.5mg)) 3 ml RQID NEB Last administered on 03/23/17 15:23; Start 03/20/17 at 20:00; Stop 04/19/17 at 19 :59 Bisacodyl (Dulcolax Suppository) 10 mg BID WV Last administered on 03/20/17 20:43; Start 03/20/17 at 21:00; Stop 04/19/17 at 20:59 Enoxaparin Sodium (Lovenox) 40 mg DAILY@1800 SC Last administered on 17:58; Start 03/20/17 at 18:00; Stop 03/30/17 at 23:55 Metoprolol Tartrate (Lopressor) 25 mg BID PO Last administered on 03/24/17 08 :42; Start 03/20/17 at 21:00; Stop 04/19/17 at 20:59 Nicotine (Nicoderm Cq 21mg) 1 patch DAILY TD Last administered on 03/24/17 08 :42; Start 03/21/17 at 09:00; Stop 04/20/17 at 08:59 Senna/Docusate Sodium (Senokot S) 1 tab BID PO Last administered on 03/23/17 08:10; Start 03/20/17 at 21:00; Stop 04/19/17 at 20:59 ZACHARIAH DOWELL MD Mar 24, 2017 12:32
[2017-03-24 14:00] VITALS: BP 139/65
[2017-03-24] MEDS: ENOXAPARIN 40 MG/0.4 ML SYRINGE (J1650) SC SCH (18:46)
[2017-03-24 20:00] VITALS: BP 135/60
[2017-03-25 06:00] VITALS: BP 144/67
[2017-03-25] MEDS: IPRATROPIUM 0.5MG/ALBUTEROL 2.5MG INH SOL UD 3ML (DUONEB)(J7620) NEB SCH ×4 (07:02→19:50)
[2017-03-25 07:14] LABS: BASO % 0.7 % (0.0-1.0); EOS # 0.4 10^3/uL (0.0-0.50); EOS % 6.1 % (0.0-3.0); LYMPH # 0.8 10^3/uL (1.5-4.5); LYMPH % 13.1 % (24.0-44.0); MEAN CORPUSCULAR HEMOGLOBIN 28.3 pg (27.0-33.0); MEAN CORPUSCULAR HGB CONC 31.7 g/dl (32.0-36.5); MEAN CORPUSCULAR VOLUME 89.1 fl (80.0-96.0); MONO # 0.7 10^3/uL (0.0-0.8); MONO % 10.8 % (0.0-5.0); NEUTROPHILS # 4.1 10^3/uL (1.8-7.7); NEUTROPHILS % 68.3 % (36.0-66.0); PLATELET COUNT, AUTOMATED 323 10^3/uL (150-450); RED CELL DISTRIBUTION WIDTH 14.5 % (11.5-14.5)
[2017-03-25 07:30] LABS: ALBUMIN 2.2 GM/DL (3.2-5.2); ALBUMIN/GLOBULIN RATIO 0.52 (1.00-1.93); ALKALINE PHOSPHATASE 109 U/L (45-117); ALT/SGPT 29 U/L (12-78); ANION GAP 5 MEQ/L (8-16); AST/SGOT 28 U/L (7-37); BILIRUBIN,TOTAL 0.7 MG/DL (0.2-1.0); BLOOD UREA NITROGEN 16 MG/DL (7-18); CALCIUM LEVEL 8.6 MG/DL (8.8-10.2); CARBON DIOXIDE LEVEL 32 MEQ/L (21-32); CHLORIDE LEVEL 103 MEQ/L (98-107); CREATININE FOR GFR 0.63 MG/DL (0.55-1.02); GLOMERULAR FILTRATION RATE > 60.0 (>32); GLUCOSE, FASTING 98 MG/DL (83-110); MAGNESIUM LEVEL 1.9 MG/DL (1.8-2.4); POTASSIUM SERUM 3.6 MEQ/L (3.5-5.1); SODIUM LEVEL 140 MEQ/L (136-145); TOTAL PROTEIN 6.4 GM/DL (6.4-8.2)
[2017-03-25] MEDS: BISACODYL 10 MG SUPP PR SCH (08:58)
[2017-03-25] MEDS: NICOTINE 21MG/24HR 1 EA TRANSDERMAL TD SCH (08:58)
[2017-03-25] MEDS: SENOKOT S TAB PO SCH ×2 (08:59→21:00)
[2017-03-25] MEDS: METOPROLOL TART 25 MG TABLET PO SCH ×2 (08:59→22:28)
[2017-03-25] MEDS: POTASSIUM CHLORIDE 10 MEQ SR TABLET PO SCH (12:22)
[2017-03-25] MEDS ORDERED: LOVE1INJ SC (12:39)
--- NOTE | 2017-03-25 13:14 | IPNPDOC ---
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 On 03/18/2017, patient was carrying groceries in the home and fell down the stairs, landing on her left hip and sustained a left hip fracture, for which she was seen in the emergency room and then evaluated by orthopedics and a left total hip arthroplasty was performed 03/18/17. Patient with coughing and pathology still pending on the fracture site. Patient participating in PT/OT and was cleared by [employer] SALESPERSON on her oral control for secretions and meals. Patient continues to have left hip pain limiting her level of function and needs to be Mod. Indep. for return to living alone at home. ALLERGIES: See Below MEDICATIONS: Reviewed, see below. OBJECTIVE: VITAL SIGNS: Please see below. PHYSICAL EXAMINATION: GENERAL: Patient is a slightly above average height for an 81-year-old white female, who is in mild musculoskeletal distress, favoring her left hip, with mild lower extremity edema. HEENT: Normocephalic/atraumatic. CARDIOVASCULAR: Regular rate and rhythm with normal S1 and S2. 2/4 bilateral radial pulses. LUNGS: All lopez clear to auscultation. ABDOMEN: Mildly obese, soft nontender with normal bowel sounds in all quadrants. NEUROLOGICAL: Patient is alert and oriented 4. Speech is clear coherent and appropriate. Affect is pleasant and cooperative. Memory is intact. Bilateral upper extremity with functional range of motion and good strength. Right lower extremity with functional range of motion and good strength. SKIN: Healing left hip and thigh surgical incision sites. LABORATORY DATA: Reviewed. Please see below. MICROBIOLOGY: Please see below. IMAGING: No new imaging. DVT prophylaxis ordered?: Lovenox, [place] hose and sequential compression stockings. Patient to be taught self injection of Lovenox. ASSESSMENT AND PLAN: 1. Rehabilitation of left hip fracture with closed reduction internal fixation: Patient is proceeding with gaiting and transfer training as well as ADLs. She shows some limitation due to pain. However has been able work past her pain is contact-guard to standby assist in transfers and ambulating up to 280 feet with front wheel walker. Patient progressing well with PT/OT We anticipated Discharge Date of 03/26/17. Please see attached therapy notes below. 2. Colon cancer: Patient with only mild anemia. No signs of active metastases at this time with pathology of the fracture still pending. 3. Fevers of unknown origin: Patient has blood cultures 2 that are negative and a normal white count at 6.0 thousand. TIME SPENT: Chart Review, examination and documentation require greater than 25 minutes. Allergies Coded Allergies: Penicillins (Verified Allergy, Intermediate, HIVES, 05/09/14) Penicillins Cross Reactors (Verified Allergy, Intermediate, HIVES, 05/09/14 ) Vital Signs Vital Signs Date Time Temp Pulse Resp B/P (MAP) Pulse Ox O2 Delivery O2 Flow Rate FiO2 03/25/17 08:59 86 144/67 03/25/17 08:30 Room Air 03/25/17 06:00 100.3 18 94 03/23/17 06:00 0.5 Laboratory Data CBC/BMP Laboratory Tests 03/25/17 06:55 Red Blood Count 4.14, Mean Corpuscular Volume 89.1, Mean Corpuscular Hemoglobin 28.3, Mean Corpuscular Hemoglobin Concent 31.7 L, Red Cell Distribution Width 14.5, Neutrophils (%) (Auto) 68.3 H, Lymphocytes (%) (Auto) 13.1 L, Monocytes (% ) (Auto) 10.8 H, Eosinophils (%) (Auto) 6.1 H, Basophils (%) (Auto) 0.7, Neutrophils # (Auto) 4.1, Lymphocytes # (Auto) 0.8 L, Monocytes # (Auto) 0.7, Eosinophils # (Auto) 0.4, Basophils # (Auto) 0.0, Calcium Level 8.6 L, Aspartate Amino Transf (AST/SGOT) 28, Alanine Aminotransferase (ALT/SGPT) 29, Alkaline Phosphatase 109, Total Bilirubin 0.7, Total Protein 6.4, Albumin 2.2 L Labs 24H Laboratory Tests 2 03/25/17 06:55: Immature Granulocyte % (Auto) 1.0H, White Blood Count 6.0, Red Blood Count 4.14 , Hemoglobin 11.7L, Hematocrit 36.9, Mean Corpuscular Volume 89.1, Mean Corpuscular Hemoglobin 28.3, Mean Corpuscular Hemoglobin Concent 31.7L, Red Cell Distribution Width 14.5, Platelet Count 323, Neutrophils (%) (Auto) 68.3H, Lymphocytes (%) (Auto) 13.1L, Monocytes (%) (Auto) 10.8H, Eosinophils (%) (Auto ) 6.1H, Basophils (%) (Auto) 0.7, Neutrophils # (Auto) 4.1, Lymphocytes # (Auto ) 0.8L, Monocytes # (Auto) 0.7, Eosinophils # (Auto) 0.4, Basophils # (Auto) 0.0 , Immature Granulocyte # (Auto) 0.1H, Nucleated Red Blood Cells % (auto) 0.0, Anion Gap 5L, Glomerular Filtration Rate > 60.0, Blood Urea Nitrogen 16, Creatinine 0.63, Sodium Level 140, Potassium Level 3.6, Chloride Level 103, Carbon Dioxide Level 32, Calcium Level 8.6L, Aspartate Amino Transf (AST/SGOT) 28, Alanine Aminotransferase (ALT/SGPT) 29, Alkaline Phosphatase 109, Total Bilirubin 0.7, Total Protein 6.4, Albumin 2.2L, Magnesium Level 1.9, Albumin/ Globulin Ratio 0.52L Microbiology Microbiology 03/22/17 Blood Culture - Preliminary, Resulted No Growth after 48 hours. All Specime... 03/22/17 Blood Culture - Preliminary, Resulted No Growth after 48 hours. All Specime... 03/24/17 Gram Stain - Final, Resulted 03/24/17 Sputum Culture, Resulted Pending 03/23/17 Urine Culture - Final, Complete Current Medications Current Medications Current Medications Acetaminophen (Tylenol Tab) 650 mg Q6HP PRN PO PAIN OR FEVER Last administered on 03/24/17 20:58; Start 03/20/17 at 16:15; Stop 04/19/17 at 16:14 Albuterol Sulfate (Proventil Neb) 2.5 mg Q2HP PRN NEB SOB/WHEEZING; Start at 16:15; Stop 04/19/17 at 16:14 Albuterol/ Ipratropium (Duoneb (Ipr 0.5mg/Alb 2.5mg)) 3 ml RQID NEB Last administered on 03/25/17 11:08; Start 03/20/17 at 20:00; Stop 04/19/17 at 19 :59 Bisacodyl (Dulcolax Suppository) 10 mg BID WI Last administered on 03/20/17 20:43; Start 03/20/17 at 21:00; Stop 03/25/17 at 09:07; Status DC Enoxaparin Sodium (Lovenox) 40 mg DAILY@1800 SC Last administered on 18:46; Start 03/20/17 at 18:00; Stop 03/30/17 at 23:55 Metoprolol Tartrate (Lopressor) 25 mg BID PO Last administered on 03/25/17 08 :59; Start 03/20/17 at 21:00; Stop 04/19/17 at 20:59 Nicotine (Nicoderm Cq 21mg) 1 patch DAILY TD Last administered on 03/25/17 08 :58; Start 03/21/17 at 09:00; Stop 04/20/17 at 08:59 Potassium Chloride (Micro-K Extencaps) 10 meq DAILY PO Last administered on 12:22; Start 03/25/17 at 09:00; Stop 04/24/17 at 08:59 Senna/Docusate Sodium (Senokot S) 1 tab BID PO Last administered on 03/23/17 08:10; Start 03/20/17 at 21:00; Stop 04/19/17 at 20:59 ZACHARIAH DOWELL MD Mar 25, 2017 13:14
[2017-03-25 14:00] VITALS: BP 132/68
[2017-03-25] MEDS: ACETAMINOPHEN TAB 650MG DOSE (2X325MG) PO PRN ×2 (15:12→22:25)
[2017-03-25] MEDS: ENOXAPARIN 40 MG/0.4 ML SYRINGE (J1650) SC SCH (17:56)
[2017-03-25 20:00] VITALS: BP 125/58
[2017-03-26 06:00] VITALS: BP 140/62
[2017-03-26] MEDS: IPRATROPIUM 0.5MG/ALBUTEROL 2.5MG INH SOL UD 3ML (DUONEB)(J7620) NEB SCH (07:35)
[2017-03-26] MEDS: POTASSIUM CHLORIDE 10 MEQ SR TABLET PO SCH (08:56)
[2017-03-26 08:57] VITALS: BP 138/62
[2017-03-26] MEDS: NICOTINE 21MG/24HR 1 EA TRANSDERMAL TD SCH (08:57)
[2017-03-26] MEDS: SENOKOT S TAB PO SCH (08:57)
[2017-03-26] MEDS: METOPROLOL TART 25 MG TABLET PO SCH (08:57)
[2017-03-26] MEDS: ENOXAPARIN 40 MG/0.4 ML SYRINGE (J1650) SC SCH (11:34)
--- NOTE | 2017-03-26 20:33 | PMRDS ---
DATE OF ADMISSION: 03/20/2017 DATE OF DISCHARGE: 03/26/2017 DISCHARGE DIAGNOSIS: Rehabilitation of left hip fracture sustained on 03/18/2017 status post operative medullary nail and screw placement on 03/18/2017. HISTORY: Patient is a right-handed elderly female who was in carrying groceries into the home and fell down the stairs lying on her left hip and sustained a fracture on 03/18/2017 and was brought to [facility] and had assessment in the emergency room and was taken for surgical reduction and internal fixation. Her past medical history includes metastatic colon cancer with metastases in the lung and chemotherapy treatments 3-4 years prior to this event with sigmoid colon resection, ileostomy, total abdominal hysterectomy, colonic reanastamosis, and more recent abdominal mass removal with the other ones in 2012, the last in 2015. Patient had been doing well following that. She was started on physical and occupational therapy and was felt to be able to benefit from acute intensive rehabilitation to regain independence to return to living at home alone. Patient admitted to the acute rehabilitation unit, therefore on 03/20/2017. Patient did very well overall in physical and occupational therapy though did have some fevers and had chest x-ray taken which showed a couple of preexisting masses that are known from prior CT scan but no acute pathology. Her hemoglobin and hematocrit stayed essentially stable throughout the course of admission, on the borderline between normal and very mild. Chemistry showed some hyponatremia of 135 on admission but normalized to 140, and otherwise had normal electrolytes the day prior to discharge and normal BUN and creatinine though she continued to have severe hypoalbuminemia being at 2.2 at the time of discharge with secondarily reduced calcium of 8.6. In OT, patient progressed from mid assisting rolling, contact guard and other mobilities transfers except for toileting which was mid assist and having only fair plus balance to modified independent in her mobility transfers and good balance and PT only ambulating 43 feet to begin with contact guard assistance and not able to do stairs to greater than 170 feet modified independent and able to go 150 feet times two and having achieved ability to step supervision touch assistance. DISCHARGE MEDICATIONS: -Albuterol nebulizers -DuoNeb nebulizers -metoprolol tartrate 25 mg twice a day -Senna plus 1 tablet twice a day -Tylenol -Patient on Lovenox 40 mg subcutaneous daily -She does not wish to give up smoking and so nicotine patches were never titrated down and patient will stop these and resume her smoking. Patient to follow up with orthopedics within a week for staple removal and then as needed beyond that. She is to see her primary care with Dr. Srinivasan Blackwell within the two weeks. COMPLICATIONS: None. TIME SPENT ON DISCHARGE: Greater than 35 minutes.
== END 2017-03-26 12:05 | disposition home health service (06) | DRG 560 ==
LOC: M PM&R 16:30
PROVIDERS: ADMIT Physical Medicine & Rehabilitation; ATTEND Physical Medicine & Rehabilitation
DX: S72.042D Displaced fracture of base of neck of left femur, subsequent encounter for closed fracture with routine healing (principal); E87.1 Hypo-osmolality and hyponatremia; W10.8XXD Fall (on) (from) other stairs and steps, subsequent encounter; F17.210 Nicotine dependence, cigarettes, uncomplicated; K59.00 Constipation, unspecified; R50.9 Fever, unspecified; R91.8 Other nonspecific abnormal finding of lung field; H91.93 Unspecified hearing loss, bilateral; D64.9 Anemia, unspecified; E88.09 Other disorders of plasma-protein metabolism, not elsewhere classified; Y92.008 Other place in unspecified non-institutional (private) residence as the place of occurrence of the external cause; Z85.038 Personal history of other malignant neoplasm of large intestine; Z90.49 Acquired absence of other specified parts of digestive tract; Z92.21 Personal history of antineoplastic chemotherapy; Z88.0 Allergy status to penicillin; Z79.899 Other long term (current) drug therapy

== ENCOUNTER → 2017-04-03 | Outpatient (CLI) | payer MEDICARE, OTHER ==
--- NOTE | 2017-04-03 15:33 | REP ---
LEFT LOWER EXTREMITY DOPPLER VENOUS ULTRASOUND: 04/03/2017. Comparison: None. Clinical history: Fever, fracture, swelling. Evaluate for DVT. Technique: The deep venous system of the left lower extremity is evaluated with kunz scale imaging, compression ultrasound, color imaging and duplex Doppler interrogation. Examination from the groin through the popliteal fossa into the proximal calf. Findings: There is full compressibility from the common femoral vein in the inguinal region through the popliteal vein. Color imaging confirms patency throughout the course of the deep venous system. There is respiratory variation and augmented flow at all levels. Impression: 1. No Doppler venous ultrasound evidence of DVT in the left lower extremity. 2. The exam somewhat limited due to swelling and relatively poor patient tolerance. Signed by Juan Jiménez MD 04/03/2017 03:25 P
== END ==
LOC: M RAD 14:28
PROVIDERS: ATTEND Physician Assistant
DX: M79.604 Pain in right leg (principal)

== ENCOUNTER → 2017-05-20 | Outpatient (CLI) | payer MEDICARE, OTHER ==
[~2017-05-20] MED LIST changes: -ALB2.5NEB INH; -ALBU17IN INH; -Acetaminophen Tab PO; -BENA25TA4 PO; +GASTROGRAFIN SOLUTION 30ML (Q9963) As Ordered; -IPRASOL4 NEB; +ISOVUE-370 76% 100ML VIAL (Q9967) As Ordered; -LOPR50TA PO; -LOVE1INJ SC; -METO1TAB87 PO; -NICO21PAT TD; -NO MEDS; -NORCOTAB PO; -OMEP40CA2 PO; -ONDA4VLL IV; -PERCOCET PO; -SENN1TAB2 PO; -TYLE325T5 PO; +diphenhydrAMINE 25 MG CAP PO
== END ==
LOC: M RAD 12:50
DX: C18.9 Malignant neoplasm of colon, unspecified (principal); C79.51 Secondary malignant neoplasm of bone
CPT/HCPCS: Q9963

== ENCOUNTER → 2017-07-20 | Outpatient (REF) | payer MEDICARE, OTHER ==
[2017-07-21 11:03] LABS: CARCINOEMBRYONIC ANTIGEN 3.5 NG/ML (<2.5)
== END ==
LOC: M LAB REF 13:40
DX: C18.9 Malignant neoplasm of colon, unspecified (principal)
CPT/HCPCS: 82378

== ENCOUNTER → 2017-07-27 | Outpatient (REF) | payer MEDICARE, OTHER | LOC: M LAB REF 12:52 | DX: C18.9 Malignant neoplasm of colon, unspecified (principal) | CPT/HCPCS: 82378 ==

== ENCOUNTER → 2017-08-18 | Outpatient (REF) | payer MEDICARE, OTHER ==
[2017-08-18 14:32] LABS: CARCINOEMBRYONIC ANTIGEN 1.7 NG/ML (<2.5)
== END ==
LOC: M LAB REF 13:27
DX: C18.7 Malignant neoplasm of sigmoid colon (principal)
CPT/HCPCS: 82378

== ENCOUNTER → 2017-08-19 | Outpatient (CLI) | payer MEDICARE, OTHER | LOC: M LAB 11:21 | DX: J18.9 Pneumonia, unspecified organism (principal) | CPT/HCPCS: 71046 ==

== ENCOUNTER → 2017-08-26 | Outpatient (CLI) | payer MEDICARE, OTHER ==
[~2017-08-26] MED LIST changes: -GASTROGRAFIN SOLUTION 30ML (Q9963) As Ordered; -diphenhydrAMINE 25 MG CAP PO
== END ==
LOC: M RAD 08:07
DX: C18.9 Malignant neoplasm of colon, unspecified (principal); Z79.899 Other long term (current) drug therapy; R09.02 Hypoxemia
CPT/HCPCS: Q9967

== ENCOUNTER 2017-09-24 15:08 | Inpatient (IN) | payer MEDICARE, OTHER ==
[2017-09-24 16:00] LABS: BASO % 0.4 % (0.0-1.0); EOS # 0.1 10^3/uL (0.0-0.50); EOS % 1.8 % (0.0-3.0); HEMATOCRIT 45.7 % (36.0-47.0); HEMOGLOBIN 14.5 g/dl (12.0-15.5); IMMATURE GRANULOCYTE % 0.3 % (0-3.0); LYMPH # 0.9 10^3/uL (1.5-4.5); LYMPH % 12.9 % (24.0-44.0); MEAN CORPUSCULAR HEMOGLOBIN 27.6 pg (27.0-33.0); MEAN CORPUSCULAR HGB CONC 31.7 g/dl (32.0-36.5); MONO # 0.9 10^3/uL (0.0-0.8); NEUTROPHILS # 5.2 10^3/uL (1.8-7.7); NEUTROPHILS % 72.6 % (36.0-66.0); PLATELET COUNT, AUTOMATED 205 10^3/uL (150-450); RED BLOOD COUNT 5.25 10^6/uL (4.00-5.40); RED CELL DISTRIBUTION WIDTH 21.8 % (11.5-14.5); WHITE BLOOD COUNT 7.1 10^3/uL (4.0-10.0)
[2017-09-24 16:15] LABS: PROTHROMBIN TIME 14.4 SECONDS (12.4-14.5)
[2017-09-24 16:34] LABS: ALBUMIN 3.1 GM/DL (3.2-5.2); ALBUMIN/GLOBULIN RATIO 0.97 (1.00-1.93); ALKALINE PHOSPHATASE 167 U/L (45-117); ALT/SGPT 17 U/L (12-78); ANION GAP 5 MEQ/L (8-16); AST/SGOT 12 U/L (7-37); BILIRUBIN,DIRECT 0.4 MG/DL (0.0-0.2); BILIRUBIN,TOTAL 0.9 MG/DL (0.2-1.0); BLOOD UREA NITROGEN 28 MG/DL (7-18); CALCIUM LEVEL 8.3 MG/DL (8.8-10.2); CARBON DIOXIDE LEVEL 41 MEQ/L (21-32); CHLORIDE LEVEL 88 MEQ/L (98-107); CPK CREATINE PHOSPHOKINASE 25 U/L (26-192); CREATININE FOR GFR 1.18 MG/DL (0.55-1.30); GLOMERULAR FILTRATION RATE 46.5 (>32); GLUCOSE, FASTING 93 MG/DL (70-100); POTASSIUM SERUM 3.6 MEQ/L (3.5-5.1); SODIUM LEVEL 134 MEQ/L (136-145); TOTAL PROTEIN 6.3 GM/DL (6.4-8.2); TROPONIN I 0.02 NG/ML (< 0.10)
[2017-09-24 16:38] LABS: CK-MB VALUE MASS < 1.0 NG/ML (<3.6); NT-PRO BNP 11362 PG/ML (<450)
[2017-09-24] MEDS ORDERED: ISOVUE-370 76% 100ML VIAL (Q9967) As Ordered (17:05)
[2017-09-24] MEDS: FUROSEMIDE 100 MG/10 ML VIAL (J1940) IV (17:15)
[2017-09-24] MEDS: FUROSEMIDE 20 MG/2 ML VIAL (J1940) IV ×2 (18:00→23:40)
[2017-09-24] MEDS ORDERED: FUROSEMIDE 40 MG/4 ML VIAL (J1940) IV (18:00)
[2017-09-25] MEDS: FUROSEMIDE 20 MG/2 ML VIAL (J1940) IV (05:53)
[2017-09-25 05:59] LABS: HEMATOCRIT 46.2 % (36.0-47.0); HEMOGLOBIN 14.5 g/dl (12.0-15.5); MEAN CORPUSCULAR HEMOGLOBIN 27.8 pg (27.0-33.0); MEAN CORPUSCULAR HGB CONC 31.4 g/dl (32.0-36.5); MEAN CORPUSCULAR VOLUME 88.5 fl (80.0-96.0); PLATELET COUNT, AUTOMATED 188 10^3/uL (150-450); RED BLOOD COUNT 5.22 10^6/uL (4.00-5.40); RED CELL DISTRIBUTION WIDTH 21.7 % (11.5-14.5)
[2017-09-25 06:26] LABS: BLOOD UREA NITROGEN 25 MG/DL (7-18); CALCIUM LEVEL 8.2 MG/DL (8.8-10.2); CHLORIDE LEVEL 86 MEQ/L (98-107); MAGNESIUM LEVEL 1.9 MG/DL (1.8-2.4); TROPONIN I < 0.02 NG/ML (< 0.10)
[2017-09-25 06:32] LABS: CK-MB VALUE MASS < 1.0 NG/ML (<3.6)
[2017-09-25 06:37] LABS: CHOLESTEROL LEVEL 125 MG/DL (<200); CHOLESTEROL RISK RATIO 1.984 (<5); CPK CREATINE PHOSPHOKINASE 31 U/L (26-192); CREATININE FOR GFR 1.15 MG/DL (0.55-1.30); GLOMERULAR FILTRATION RATE 47.9 (>32); GLUCOSE, FASTING 96 MG/DL (70-100); HDL CHOLESTEROL 63 MG/DL (>40); LDL CHOLESTEROL 49.6 MG/DL (<100); MB/CK RELATIVE INDEX 3.22 (< OR =4); NON-HDL-C 62 MG/DL; POTASSIUM SERUM 3.3 MEQ/L (3.5-5.1); SODIUM LEVEL 137 MEQ/L (136-145); TRIGLYCERIDES LEVEL 62 MG/DL (<150)
[2017-09-25 07:04] LABS: ANION GAP 4 MEQ/L (8-16); CARBON DIOXIDE LEVEL 47 MEQ/L (21-32)
[2017-09-25] MEDS: POTASSIUM CHLORIDE 10 MEQ SR TABLET PO (09:45)
[2017-09-25] MEDS: ENOXAPARIN 30 MG/0.3 ML SYR (J1650) SC (09:45)
[2017-09-25 10:48] LABS: ABG BASE EXCESS 20.5 (-2.0-2.0); ABG HCO3 51.9 MEQ/L (22.0-26.0); ABG O2 SATURATION 95.2 % (95.0-99.0); ABG PARTIAL PRESSURE O2 79.4 mmHg (75.0-100.0); ABG TOTAL CO2 54.8 MEQ/L (23.0-31.0); ABG pH (ARTERIAL) 7.356 UNITS (7.350-7.450)
[2017-09-25 10:56] LABS: ABG PARTIAL PRESSURE CO2 94.9 mmHg (35.0-45.0)
[2017-09-25 12:45] LABS: CK-MB VALUE MASS < 1.0 NG/ML (<3.6); CPK CREATINE PHOSPHOKINASE 27 U/L (26-192); TROPONIN I 0.02 NG/ML (< 0.10)
[2017-09-25] MEDS: AcetaZOLAMIDE 500MG INJECTION (J1120) IV (12:50)
[2017-09-26 06:01] LABS: HEMATOCRIT 45.6 % (36.0-47.0); HEMOGLOBIN 13.7 g/dl (12.0-15.5); MEAN CORPUSCULAR HEMOGLOBIN 27.2 pg (27.0-33.0); MEAN CORPUSCULAR VOLUME 90.5 fl (80.0-96.0); PLATELET COUNT, AUTOMATED 175 10^3/uL (150-450); RED BLOOD COUNT 5.04 10^6/uL (4.00-5.40); RED CELL DISTRIBUTION WIDTH 21.2 % (11.5-14.5); WHITE BLOOD COUNT 7.2 10^3/uL (4.0-10.0)
[2017-09-26 06:17] LABS: ANION GAP 2 MEQ/L (8-16); BLOOD UREA NITROGEN 20 MG/DL (7-18); CALCIUM LEVEL 8.1 MG/DL (8.8-10.2); CARBON DIOXIDE LEVEL 45 MEQ/L (21-32); CHLORIDE LEVEL 91 MEQ/L (98-107); CREATININE FOR GFR 0.89 MG/DL (0.55-1.30); GLOMERULAR FILTRATION RATE > 60.0 (>32); GLUCOSE, FASTING 102 MG/DL (70-100); POTASSIUM SERUM 3.7 MEQ/L (3.5-5.1); SODIUM LEVEL 138 MEQ/L (136-145)
[2017-09-26] MEDS: ENOXAPARIN 30 MG/0.3 ML SYR (J1650) SC (07:48)
[2017-09-26 09:34] LABS: ABG BASE EXCESS 13.5 (-2.0-2.0); ABG HCO3 43.9 MEQ/L (22.0-26.0); ABG O2 SATURATION 93.7 % (95.0-99.0); ABG PARTIAL PRESSURE O2 71.5 mmHg (75.0-100.0); ABG STANDARD HCO3 37.3 MEQ/L (22.0-26.0); ABG TOTAL CO2 46.5 MEQ/L (23.0-31.0); ABG pH (ARTERIAL) 7.327 UNITS (7.350-7.450)
[2017-09-26 09:40] LABS: ABG PARTIAL PRESSURE CO2 85.7 mmHg (35.0-45.0)
[2017-09-26] MEDS: IPRATROPIUM 0.5MG/ALBUTEROL 2.5MG INH SOL UD 3ML (DUONEB)(J7620) NEB (19:44)
[2017-09-26] MEDS: guaiFENesin ER 600 MG TAB PO (21:34)
[2017-09-27] MEDS: NORCO, ANEXSIA 5/325MG TABLET (HYDROcodone/ACETAMINOPHEN) PO ×2 (00:54→12:49)
[2017-09-27 06:30] LABS: HEMATOCRIT 44.8 % (36.0-47.0); HEMOGLOBIN 13.3 g/dl (12.0-15.5); MEAN CORPUSCULAR HEMOGLOBIN 27.1 pg (27.0-33.0); MEAN CORPUSCULAR HGB CONC 29.7 g/dl (32.0-36.5); MEAN CORPUSCULAR VOLUME 91.4 fl (80.0-96.0); PLATELET COUNT, AUTOMATED 160 10^3/uL (150-450); RED CELL DISTRIBUTION WIDTH 21.3 % (11.5-14.5); WHITE BLOOD COUNT 6.1 10^3/uL (4.0-10.0)
[2017-09-27 06:47] LABS: ANION GAP 3 MEQ/L (8-16); BLOOD UREA NITROGEN 17 MG/DL (7-18); CALCIUM LEVEL 8.5 MG/DL (8.8-10.2); CARBON DIOXIDE LEVEL 42 MEQ/L (21-32); CHLORIDE LEVEL 93 MEQ/L (98-107); CREATININE FOR GFR 0.84 MG/DL (0.55-1.30); GLOMERULAR FILTRATION RATE > 60.0 (>32); GLUCOSE, FASTING 122 MG/DL (70-100); POTASSIUM SERUM 3.4 MEQ/L (3.5-5.1); SODIUM LEVEL 138 MEQ/L (136-145)
[2017-09-27] MEDS: IPRATROPIUM 0.5MG/ALBUTEROL 2.5MG INH SOL UD 3ML (DUONEB)(J7620) NEB ×4 (07:20→19:58)
[2017-09-27] MEDS: guaiFENesin ER 600 MG TAB PO ×2 (07:46→21:38)
[2017-09-27] MEDS: ENOXAPARIN 30 MG/0.3 ML SYR (J1650) SC (07:47)
[2017-09-27] MEDS: POTASSIUM CHLORIDE 10 MEQ SR TABLET PO (07:50)
[2017-09-27] MEDS: LevoFLOXacin IV 750 MG in APPROPRIATE DILUENT 1 EA IV (10:03)
[2017-09-28 06:21] LABS: HEMOGLOBIN 12.6 g/dl (12.0-15.5); MEAN CORPUSCULAR HEMOGLOBIN 27.6 pg (27.0-33.0); MEAN CORPUSCULAR HGB CONC 30.7 g/dl (32.0-36.5); MEAN CORPUSCULAR VOLUME 89.7 fl (80.0-96.0); PLATELET COUNT, AUTOMATED 155 10^3/uL (150-450); RED BLOOD COUNT 4.57 10^6/uL (4.00-5.40); RED CELL DISTRIBUTION WIDTH 21.1 % (11.5-14.5); WHITE BLOOD COUNT 6.5 10^3/uL (4.0-10.0)
[2017-09-28 06:36] LABS: ANION GAP 3 MEQ/L (8-16); BLOOD UREA NITROGEN 16 MG/DL (7-18); CALCIUM LEVEL 8.3 MG/DL (8.8-10.2); CARBON DIOXIDE LEVEL 39 MEQ/L (21-32); CHLORIDE LEVEL 97 MEQ/L (98-107); CREATININE FOR GFR 0.69 MG/DL (0.55-1.30); GLOMERULAR FILTRATION RATE > 60.0 (>32); GLUCOSE, FASTING 81 MG/DL (70-100); SODIUM LEVEL 139 MEQ/L (136-145)
[2017-09-28] MEDS: guaiFENesin ER 600 MG TAB PO ×2 (08:14→20:51)
[2017-09-28] MEDS: ENOXAPARIN 30 MG/0.3 ML SYR (J1650) SC (08:15)
[2017-09-28] MEDS: IPRATROPIUM 0.5MG/ALBUTEROL 2.5MG INH SOL UD 3ML (DUONEB)(J7620) NEB ×4 (08:50→19:51)
[2017-09-28 09:24] LABS: ABG BASE EXCESS 11.8 (-2.0-2.0); ABG HCO3 41.1 MEQ/L (22.0-26.0); ABG O2 SATURATION 95.4 % (95.0-99.0); ABG PARTIAL PRESSURE O2 76.4 mmHg (75.0-100.0); ABG STANDARD HCO3 35.5 MEQ/L (22.0-26.0); ABG TOTAL CO2 43.5 MEQ/L (23.0-31.0)
[2017-09-28 09:27] LABS: ABG PARTIAL PRESSURE CO2 77.9 mmHg (35.0-45.0)
[2017-09-28] MEDS: DOCUSATE SODIUM 100 MG CAP PO ×2 (11:41→20:51)
[2017-09-28] MEDS: NORCO, ANEXSIA 5/325MG TABLET (HYDROcodone/ACETAMINOPHEN) PO (22:51)
[2017-09-29 06:39] LABS: HEMATOCRIT 42.7 % (36.0-47.0); HEMOGLOBIN 13.2 g/dl (12.0-15.5); MEAN CORPUSCULAR HEMOGLOBIN 27.8 pg (27.0-33.0); MEAN CORPUSCULAR HGB CONC 30.9 g/dl (32.0-36.5); MEAN CORPUSCULAR VOLUME 89.9 fl (80.0-96.0); PLATELET COUNT, AUTOMATED 146 10^3/uL (150-450); RED BLOOD COUNT 4.75 10^6/uL (4.00-5.40); RED CELL DISTRIBUTION WIDTH 21.6 % (11.5-14.5); WHITE BLOOD COUNT 4.7 10^3/uL (4.0-10.0)
[2017-09-29 06:54] LABS: ANION GAP 1 MEQ/L (8-16); BLOOD UREA NITROGEN 17 MG/DL (7-18); CALCIUM LEVEL 8.5 MG/DL (8.8-10.2); CARBON DIOXIDE LEVEL 38 MEQ/L (21-32); CHLORIDE LEVEL 99 MEQ/L (98-107); CREATININE FOR GFR 0.77 MG/DL (0.55-1.30); GLOMERULAR FILTRATION RATE > 60.0 (>32); GLUCOSE, FASTING 77 MG/DL (70-100); POTASSIUM SERUM 4.3 MEQ/L (3.5-5.1); SODIUM LEVEL 138 MEQ/L (136-145)
[2017-09-29] MEDS: IPRATROPIUM 0.5MG/ALBUTEROL 2.5MG INH SOL UD 3ML (DUONEB)(J7620) NEB ×4 (07:34→19:26)
[2017-09-29] MEDS: DOCUSATE SODIUM 100 MG CAP PO ×2 (08:42→21:44)
[2017-09-29] MEDS: guaiFENesin ER 600 MG TAB PO ×2 (08:42→21:44)
[2017-09-29] MEDS: ENOXAPARIN 30 MG/0.3 ML SYR (J1650) SC (08:43)
[2017-09-29] MEDS: LevoFLOXacin IV 750 MG in APPROPRIATE DILUENT 1 EA IV (08:43)
[2017-09-29] MEDS: MOM 30ML SUSPENSION UDC PO (11:15)
[2017-09-29] MEDS ORDERED: MIRALAX *UNIT DOSE* 17GM PACKET PO (13:15)
[2017-09-30] MEDS: IPRATROPIUM 0.5MG/ALBUTEROL 2.5MG INH SOL UD 3ML (DUONEB)(J7620) NEB ×4 (07:41→20:00)
[2017-09-30 08:48] LABS: HEMATOCRIT 42.4 % (36.0-47.0); MEAN CORPUSCULAR HEMOGLOBIN 27.3 pg (27.0-33.0); MEAN CORPUSCULAR HGB CONC 30.7 g/dl (32.0-36.5); MEAN CORPUSCULAR VOLUME 89.1 fl (80.0-96.0); PLATELET COUNT, AUTOMATED 158 10^3/uL (150-450); RED BLOOD COUNT 4.76 10^6/uL (4.00-5.40); RED CELL DISTRIBUTION WIDTH 21.4 % (11.5-14.5)
[2017-09-30] MEDS: ENOXAPARIN 30 MG/0.3 ML SYR (J1650) SC (09:05)
[2017-09-30] MEDS: DOCUSATE SODIUM 100 MG CAP PO ×2 (09:05→20:06)
[2017-09-30] MEDS: guaiFENesin ER 600 MG TAB PO ×2 (09:05→20:06)
[2017-09-30 09:09] LABS: ANION GAP 4 MEQ/L (8-16); BLOOD UREA NITROGEN 18 MG/DL (7-18); CALCIUM LEVEL 8.3 MG/DL (8.8-10.2); CARBON DIOXIDE LEVEL 37 MEQ/L (21-32); CHLORIDE LEVEL 100 MEQ/L (98-107); CREATININE FOR GFR 0.86 MG/DL (0.55-1.30); GLOMERULAR FILTRATION RATE > 60.0 (>32); GLUCOSE, FASTING 113 MG/DL (70-100); MAGNESIUM LEVEL 2.4 MG/DL (1.8-2.4); POTASSIUM SERUM 3.9 MEQ/L (3.5-5.1); SODIUM LEVEL 141 MEQ/L (136-145)
[2017-09-30] MEDS: FUROSEMIDE 20 MG/2 ML VIAL (J1940) IV (14:43)
[2017-10-01] MEDS: LevoFLOXacin 750 MG TABLET PO (05:03)
[2017-10-01 05:54] LABS: HEMATOCRIT 42.9 % (36.0-47.0); HEMOGLOBIN 13.3 g/dl (12.0-15.5); MEAN CORPUSCULAR HEMOGLOBIN 27.2 pg (27.0-33.0); MEAN CORPUSCULAR VOLUME 87.7 fl (80.0-96.0); PLATELET COUNT, AUTOMATED 162 10^3/uL (150-450); RED BLOOD COUNT 4.89 10^6/uL (4.00-5.40); RED CELL DISTRIBUTION WIDTH 21.5 % (11.5-14.5); WHITE BLOOD COUNT 4.7 10^3/uL (4.0-10.0)
[2017-10-01 06:12] LABS: ANION GAP 4 MEQ/L (8-16); BLOOD UREA NITROGEN 18 MG/DL (7-18); CALCIUM LEVEL 8.6 MG/DL (8.8-10.2); CARBON DIOXIDE LEVEL 36 MEQ/L (21-32); CHLORIDE LEVEL 99 MEQ/L (98-107); CREATININE FOR GFR 0.84 MG/DL (0.55-1.30); GLOMERULAR FILTRATION RATE > 60.0 (>32); GLUCOSE, FASTING 85 MG/DL (70-100); MAGNESIUM LEVEL 2.3 MG/DL (1.8-2.4); POTASSIUM SERUM 3.7 MEQ/L (3.5-5.1); SODIUM LEVEL 139 MEQ/L (136-145)
[2017-10-01] MEDS: IPRATROPIUM 0.5MG/ALBUTEROL 2.5MG INH SOL UD 3ML (DUONEB)(J7620) NEB ×4 (07:37→20:00)
[2017-10-01] MEDS: guaiFENesin ER 600 MG TAB PO ×2 (08:33→20:16)
[2017-10-01] MEDS: DOCUSATE SODIUM 100 MG CAP PO ×2 (08:33→20:16)
[2017-10-01] MEDS: ENOXAPARIN 30 MG/0.3 ML SYR (J1650) SC (08:33)
[2017-10-01] MEDS: MOM 30ML SUSPENSION UDC PO (14:24)
[2017-10-02] MEDS: IPRATROPIUM 0.5MG/ALBUTEROL 2.5MG INH SOL UD 3ML (DUONEB)(J7620) NEB ×4 (07:24→20:48)
[2017-10-02 07:25] LABS: HEMATOCRIT 40.1 % (36.0-47.0); HEMOGLOBIN 12.7 g/dl (12.0-15.5); MEAN CORPUSCULAR HEMOGLOBIN 27.5 pg (27.0-33.0); MEAN CORPUSCULAR HGB CONC 31.7 g/dl (32.0-36.5); PLATELET COUNT, AUTOMATED 178 10^3/uL (150-450); RED BLOOD COUNT 4.61 10^6/uL (4.00-5.40); RED CELL DISTRIBUTION WIDTH 21.5 % (11.5-14.5); WHITE BLOOD COUNT 4.9 10^3/uL (4.0-10.0)
[2017-10-02 07:48] LABS: ANION GAP 3 MEQ/L (8-16); BLOOD UREA NITROGEN 18 MG/DL (7-18); CALCIUM LEVEL 8.6 MG/DL (8.8-10.2); CARBON DIOXIDE LEVEL 33 MEQ/L (21-32); CHLORIDE LEVEL 104 MEQ/L (98-107); CREATININE FOR GFR 0.69 MG/DL (0.55-1.30); GLOMERULAR FILTRATION RATE > 60.0 (>32); GLUCOSE, FASTING 74 MG/DL (70-100); MAGNESIUM LEVEL 2.2 MG/DL (1.8-2.4); POTASSIUM SERUM 3.9 MEQ/L (3.5-5.1); SODIUM LEVEL 140 MEQ/L (136-145)
[2017-10-02] MEDS: ENOXAPARIN 30 MG/0.3 ML SYR (J1650) SC (09:00)
[2017-10-02] MEDS: DOCUSATE SODIUM 100 MG CAP PO ×2 (09:00→20:06)
[2017-10-02] MEDS: guaiFENesin ER 600 MG TAB PO (09:00)
[2017-10-02] MEDS ORDERED: guaiFENesin ER 600 MG TAB PO (15:30)
[2017-10-02] MEDS ORDERED: HYOSCYAMINE SULFATE 0.125 MG SUBL TABLET PO (15:30)
[2017-10-02] MEDS ORDERED: LORazepam 1 MG TAB PO (15:30)
[2017-10-03] MEDS: IPRATROPIUM 0.5MG/ALBUTEROL 2.5MG INH SOL UD 3ML (DUONEB)(J7620) NEB ×4 (07:55→20:00)
[2017-10-03] MEDS: DOCUSATE SODIUM 100 MG CAP PO ×2 (10:45→21:42)
[2017-10-04] MEDS: DOCUSATE SODIUM 100 MG CAP PO ×2 (08:03→20:17)
[2017-10-04] MEDS: IPRATROPIUM 0.5MG/ALBUTEROL 2.5MG INH SOL UD 3ML (DUONEB)(J7620) NEB ×4 (09:12→19:31)
[2017-10-05] MEDS: IPRATROPIUM 0.5MG/ALBUTEROL 2.5MG INH SOL UD 3ML (DUONEB)(J7620) NEB ×4 (08:08→20:00)
[2017-10-05] MEDS: DOCUSATE SODIUM 100 MG CAP PO ×2 (09:00→20:03)
[2017-10-06] MEDS: IPRATROPIUM 0.5MG/ALBUTEROL 2.5MG INH SOL UD 3ML (DUONEB)(J7620) NEB (07:36)
[2017-10-06] MEDS: DOCUSATE SODIUM 100 MG CAP PO (08:19)
== END 2017-10-06 10:05 | disposition hospice, inpatient (51) | DRG 202 ==
LOC: M ED 15:08 → M ED INP 17:22 → M MSPAV 18:40
DX: J40 Bronchitis, not specified as acute or chronic (principal); C18.7 Malignant neoplasm of sigmoid colon; C78.01 Secondary malignant neoplasm of right lung; E87.1 Hypo-osmolality and hyponatremia; E46 Unspecified protein-calorie malnutrition; E87.4 Mixed disorder of acid-base balance; J90 Pleural effusion, not elsewhere classified; E87.6 Hypokalemia; K59.00 Constipation, unspecified; R06.03 Acute respiratory distress; E87.70 Fluid overload, unspecified; Z51.5 Encounter for palliative care; Z66 Do not resuscitate; I27.29 Other secondary pulmonary hypertension; Z92.21 Personal history of antineoplastic chemotherapy; Z90.49 Acquired absence of other specified parts of digestive tract; Z88.0 Allergy status to penicillin; Z91.041 Radiographic dye allergy status; Z79.899 Other long term (current) drug therapy